=== PATIENT | male | born 1950 | race Caucasian/White ===

== ENCOUNTER 2019-11-12 07:06 | Inpatient (IN) | payer BC, OTHER ==
[2019-11-12 07:18] VITALS: BMI 27.3
[2019-11-12] MEDS ORDERED: FAMOTIDINE 20 MG/50 ML IVPB 20 MG in PREMIX 50 IVPB ONE (07:24)
[2019-11-12] MEDS ORDERED: MAG HYDROX/AL HYDROX/SIMETH -MYLANTA- ORAL SUSPENSION PO ONE (07:24)
--- NOTE | 2019-11-12 07:27 | PDOC ---
History of Present Illness - General Chief Complaint: Nausea/Vomiting Stated Complaint: NAUSEA/VOMITING/ABD PAIN Time Seen by Provider: 11/12/19 07:14 History Source: Patient Exam Limitations: No Limitations - History of Present Illness Travel History: No Initial Comments: 11/12/19 07:27 69y M hx of htn presents with epigastric pain since yesterday. Pt had a tooth extracted 3 days ago, and was prescribed vicodin and amoxicillin (last vicodin was wed, pain is now well controlled with no pain in his mouth). Pt endores a constant epigastric discomfort that feels like 'gas' and is associated with frequent burping. Pt also endorses vomiting aprpox 15 times that was brownish in color, and has not tried to eat or drink anything in the past day due to his discomfort. He denies any radaition of the pain, cp, fever/chills, diarrhea, back pain. There is no worsening of the pain with exertion and he is unsure if there is any changes of the pain with position. He has never had this type of discomfort before. Surgical hx: denies abd surgeries social: denies smoking, drinking, recreational drugs Past History - Medical History Allergies/Adverse Reactions: Allergies Allergy/AdvReac Type Severity Reaction Status Date / Time No Known Allergies Allergy Unverified 11/12/19 07:10 Home Medications: Ambulatory Orders Acetaminophen W/ Codeine #3 [Tylenol # 3 -] 1 tab PO PRN PRN 11/12/19 Amoxicillin 875 mg PO DAILY 11/12/19 Hydrochlorothiazide 12.5 mg PO DAILY 11/12/19 Telmisartan 20 mg PO DAILY 11/12/19 COPD: No HTN: Yes - Psycho-Social/Smoking History Smoking History: Never smoked Review of Systems - Review of Systems Able to Perform ROS?: Yes Comments:: 11/12/19 07:34 Constitutional - no reported Fever, Chills, HEENT: no reported vision changes, sore throat Respiratory: no reported cough, sob, hemoptysis Cardiac: no reported chest pain, palpitations, light headedness, leg swelling Abd/GI: +abd pain, nausea, vomiting, no reported blood per rectum, melena, diarrhea : no reported dysuria, frequency, discharge Musculskelatal - no reported back pain, joint swelling skin - no reported bruising, erythema, rash neurological: no reported headache, numbness, focal weakness, tingling, ataxia, hematologic: no reported easy bruising, easy bleeding *Physical Exam - Vital Signs Last Vital Signs Temp Pulse Resp BP Pulse Ox 97.7 F 109 H 18 150/81 99 11/12/19 07:13 11/12/19 07:13 11/12/19 07:13 11/12/19 07:13 11/12/19 07:13 - Physical Exam 11/12/19 07:43 GENERAL: The patient is awake, alert, and fully oriented, Nontoxic - in no acute distress. HEAD: Normocephalic, atraumatic. EYES: extraocular movements intact, sclera anicteric, conjunctiva clear. ENT: Normal voice, dry mucous membranes. NECK: Normal range of motion, supple LUNGS: Breath sounds equal, clear to auscultation bilaterally. No wheezes, no rhonchi, no rales. HEART: slightly tachycardic, normal S1 and S2 without murmur, rub or gallop. ABDOMEN: Soft, nontender, No guarding, no rebound. No CVA tenderness EXTREMITIES: Normal range of motion, no edema. NEUROLOGICAL: No facial assymetry, Normal speech, PSYCH: Normal mood, normal affect. SKIN: Warm, Dry, normal turgor, Heart Score/ECG Review - ECG Impressions Comment:: 11/12/19 07:43 Twelve-lead EKG was performed and reviewed by me. There is normal sinus rhythm with a 101 Left anterior Fascicular block The intervals are normal. There is normal R wave progression There are no ST or T wave abnormalities. Impression: Sinus tachycardia ED Treatment Course - LABORATORY CBC & Chemistry Diagram: 11/12/19 07:40 11/12/19 09:30 Medical Decision Making - Medical Decision Making 11/12/19 07:44 ddx for the patient's symptoms includes but is not limited to gastritis, pancreatitis, ACS, obstruction Will obtain blood work, will treat the patient symptomatically with Pepcid, Maalox, Zofran To be slightly tachycardic I suspect this may be secondary to dehydration, will give fluids Will reassess 11/12/19 10:26 Patient's blood work was reviewed noted for creatinine of 2.2 with elevated BUN. His WBCs and hematocrit are also elevated I suspect this is all a picture consistent with dehydration. Also has a anion gap, likely related to elevated BUN. Will obtain repeat blood work to evaluate for other As of elevated anion gap including beta hydroxy butyrate, lactic acid. will Continue fluid resuscitation We will admit the patient for further hydration Discharge - Discharge Information Problems reviewed: Yes Clinical Impression/Diagnosis: Epigastric pain, HUGO (acute kidney injury) Vomiting Qualifiers: Vomiting type: unspecified Vomiting Intractability: non-intractable Nausea presence: with nausea Qualified Code(s): R11.2 - Nausea with vomiting, unspecified Condition: Guarded - Admission Yes - Follow up/Referral - Patient Discharge Instructions - Post Discharge Activity
[2019-11-12] MEDS ORDERED: SODIUM CHLORIDE 1,000 ML IV ONE ×2 (07:32→09:15)
[2019-11-12] MEDS ORDERED: ONDANSETRON 4 MG/2 ML VIAL IVPB ONE (07:32)
[2019-11-12] MEDS ORDERED: FAMOTIDINE 20 MG/50 ML IVPB 20 MG/50 ML MG IVPB ONE (07:49)
[2019-11-12] MEDS ORDERED: MAG HYDROX/AL HYDROX/SIMETH 30 ML UNIT-DOSE CUP ONE (07:49)
[2019-11-12] MEDS ORDERED: ONDANSETRON 4 MG/2 ML VIAL ONE (07:50)
[2019-11-12 08:33] LABS: ALBUMIN 5.1 g/dl (3.4-5.0); BILIRUBIN,TOTAL 1.3 mg/dl (0.2-1); CALCIUM 10.3 mg/dl (8.5-10); CREATININE 2.2 mg/dl (0.55-1.3); POTASSIUM 3.5 mmol/L (3.5-5.1); TOT PROT 9.3 g/dl (6.4-8.2)
[2019-11-12 08:45] LABS: BASO % 0.3 % (0-2.0); HEMATOCRIT 49.1 % (35.4-49); HEMOGLOBIN 16.8 GM/dl (11.7-16.9); LYMPH % 5.2 % (8-40); MCHC 34.1 g/dl (32.0-35.9); MEAN CELL VOLUME 90.8 fl (80-96); MEAN PLT VOLUME 9.4 fl (7.5-11.1); NEUT % 89.5 % (42.8-82.8); PLATELET COUNT 371 K/MM3 (134-434); RDW 12.3 % (11.9-15.9); WHITE BLOOD COUNT 16.6 K/mm3 (4.0-10.8)
[2019-11-12 09:25] LABS: EPITHELIAL CELLS RARE /hpf
[2019-11-12 09:26] LABS: URINE HYALINE CAST 0-2 /lpf; URINE MUCUS 1+; WAXY CAST 0-2
[2019-11-12 10:04] LABS: CALCIUM 9.1 mg/dl (8.5-10); CREATININE 2.1 mg/dl (0.55-1.3); POTASSIUM 3.5 mmol/L (3.5-5.1)
[2019-11-12 11:21] LABS: VENOUS BASE EXCESS 5.9 mmol/L (-2-2); VENOUS O2 SATURATION 37.2 % (70-80); VENOUS PCO2 47.8 mmHg (38-52); VENOUS PH 7.435 (7.310-7.410)
[2019-11-12] MEDS ORDERED: PANTOPRAZOLE SODIUM 40 MG in SODIUM CHLORIDE 100 ML IVPB ONE (11:26)
[2019-11-12] MEDS ORDERED: PANTOPRAZOLE SODIUM 40 MG VIAL ONE (11:27)
[2019-11-12] MEDS ORDERED: ACETAMINOPHEN 325 MG TABLET (FP) PO PRN (12:50)
[2019-11-12] MEDS ORDERED: ONDANSETRON 4 MG/2 ML VIAL IVPUSH PRN (13:00)
[2019-11-12] MEDS ORDERED: POTASSIUM CHLORIDE 10 MEQ in SODIUM CHLORIDE 1,000 ML IVPB SCH (13:00)
--- NOTE | 2019-11-12 13:10 | HP ---
Admitting History and Physical - Primary Care Physician PCP: Panda Montoya ([phone]) - Admission Chief Complaint: Nausea/vomiting History of Present Illness: 69 year old M with h/o HTN and GERD presents to ED for evaluation of acute onset nausea, abd pain and vomiting in the setting of starting APAPw/ codeine and augmentin post tooth extraction two days ago (Thursday 11/09). Mr. Caceres reports taking three doses of Augmentin on an empty stomach, in addition to codeine for his tooth pain. On the afternoon of 11/10, around 3pm he experienced abdominal pain /10, gassiness and recurrent vomiting. Pt did not eat or attempt to fluid resuscitate over the next 12-18hrs, therefore, upon awakening on the morning of 11/11, he was lethargic and decided to proceed to local ED. He denies sick contacts or recent travel. No chest pain, dizziness, LOC, HEMPHILL, SOB or bloody emesis. In ED EKG: ST, Trop x 1 negative N/V treated with Pepcid, Maalox, Zofran Routine labs reveal WBC 16.6, lac 2.5 and Cr 2.2. Pt given 2L NS IVF and decision made to admit for continued fluid hydration and observation. 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, CVA, Dementia, Migraine, Multiple Sclerosis, Peripheral Neuropathy, Parkinson's, Seizure, Syncope, TIA, Vertigo, Other Cardiovascular: Yes: HTN Pulmonary: No: Asthma, Bronchitis, Cancer, COPD, O2 Dependent, Pneumonia, Previously Intubated, Pulmonary Embolus, Pulmonary Fibrosis, Sleep Apnea, Other Gastrointestinal: Yes: GERD Hepatobiliary: No: Cirrhosis, Cholelithiasis, Cholecystitis, Choledocholithiasis, Hepatitis A, Hepatitis B, Hepatitis C, Other Renal/: No: Renal Failure, Renal Inusuff, BPH, Cancer, Hematuria, Hemod ialysis, Neurogenic Bladder, Renal Calculi, UTI, Other Heme/Onc: No: Anemia, B12 Deficiency, Bleeding Disorder, Cancer, Current Chemotherapy, Current Radiation Therapy, Hemochromatosis, Hypercoaguable State, Myeloproliferative Synd, Sickle Cell Disease, Sickle Cell Trait, Th rombocytopenia, Other Psych: No: Addictions, Anxiety, Bipolar, Depression, Panic, Psychosis, Schizophrenia, Other Rheumatology: No: Fibromyalgia, Gout, Lupus, Rheumatoid Arthritis, Sarcoidosis, Vasculitis, Other ENT: No: Allergic Rhinitis, Sinusitis, Other Endocrine: No: Harpal's Disease, Archie's Disease, Diabetes Insipidus, Diabetes Mellitus, Hyperparathyroidism, Hyperthyroidism, Hypothyroidism, Osteopenia, SIADH, Other Dermatology: No: Basal Cell, Cellulitis, Eczema, Melanoma, Psoriasis, Squamous Cell, Other - Past Surgical History Additional Past Surgical History: bilateral cataract extraction 2019 right inguinal hernia repair 2018 - Advance Directives Advance Directives: Yes: Health Care Proxy (: Jessica Montoya [phone]) - Smoking History Smoking history: Never smoked Have you smoked in the past 12 months: No - Alcohol/Substance Use Hx Alcohol Use: No History of Substance Use: reports: None - Social History Usual Living Arrangement: Yes: With Spouse, With Child Do you think of yourself as: Straight/Heterosexual ADL: Independent History of Recent Travel: No Home Medications - Allergies Allergies/Adverse Reactions: Allergies Allergy/AdvReac Type Severity Reaction Status Date / Time No Known Allergies Allergy Unverified 11/12/19 07:10 - Home Medications Home Medications: Ambulatory Orders Acetaminophen W/ Codeine #3 [Tylenol # 3 -] 1 tab PO PRN PRN 11/12/19 Amoxicillin 875 mg PO DAILY 11/12/19 Hydrochlorothiazide 12.5 mg PO DAILY 11/12/19 Telmisartan 20 mg PO DAILY 11/12/19 Family Medical History Family History: As Documented Other Family History: Mother (70) Alzheimers dementia. Father (69) ? lung cancer, [place]. Sister (65) alzheimers Review of Systems - Review of Systems Constitutional: reports: Lethargy, Loss of Appetite, Weakness Eyes: reports: No Symptoms HENT: reports: No Symptoms Neck: reports: No Symptoms Cardiovascular: reports: No Symptoms Respiratory: reports: No Symptoms Gastrointestinal: reports: Abdominal Pain, Nausea, Vomiting Genitourinary: reports: No Symptoms Breasts: reports: No Symptoms Reported Musculoskeletal: reports: No Symptoms Integumentary: reports: No Symptoms Neurological: reports: No Symptoms Endocrine: reports: No Symptoms Hematology/Lymphatic: reports: No Symptoms Psychiatric: reports: No Symptoms Physical Examination Vital Signs: Vital Signs Temperature 98.2 F 11/12/19 12:31 Pulse Rate 89 11/12/19 12:31 Respiratory Rate 18 11/12/19 12:31 Blood Pressure 135/78 11/12/19 12:31 O2 Sat by Pulse Oximetry (%) 99 11/12/19 12:31 Constitutional: Yes: No Distress, Calm Eyes: Yes: Conjunctiva Clear HENT: Yes: Atraumatic, Normocephalic Neck: Yes: Supple, Trachea Midline Cardiovascular: Yes: Regular Rate and Rhythm Respiratory: Yes: Regular, CTA Bilaterally Gastrointestinal: Yes: Soft, Hypoactive Bowel Sounds ...Rectal Exam: Yes: Deferred Musculoskeletal: Yes: WNL Extremities: Yes: WNL Edema: No Peripheral Pulses: Left Radial: 2+, Right Radial: 2+ Integumentary: Yes: Tenting Neurological: Yes: Alert, Oriented ...Motor Strength: WNL Psychiatric: Yes: Alert, Oriented Labs: CBC, BMP 11/12/19 07:40 11/12/19 09:30 Imaging - Results Chest X-ray: Pending (CXR 11/12/2019) Cat Scan: Pending (Ct abd and pelvis 11/07/2019) Problem List - Problems (1) HTN (hypertension) Assessment/Plan: hold ARB and diuretic trend BP, if uptrending can rx norvasc Code(s): I10 - ESSENTIAL (PRIMARY) HYPERTENSION (2) Prophylactic measure Assessment/Plan: OOB to chair COVID screen pending - droplet/Airborne precautions KANDI stockings will hold off on lovenox due to recent dental work IC Code(s): Z29.9 - ENCOUNTER FOR PROPHYLACTIC MEASURES, UNSPECIFIED (3) GERD (gastroesophageal reflux disease) Assessment/Plan: PPI daily MAALOX PRN Code(s): K21.9 - GASTRO-ESOPHAGEAL REFLUX DISEASE WITHOUT ESOPHAGITIS (4) HUGO (acute kidney injury) Assessment/Plan: aggresive fluid resuscitation Trend serum Cr and electrolytes replete K as needed renal consulted f/u urine studies Code(s): N17.9 - ACUTE KIDNEY FAILURE, UNSPECIFIED (5) Vomiting Assessment/Plan: Clear liquid diet --> will progress as tolerated Zofran PRN N/V strict intake and output Code(s): R11.10 - VOMITING, UNSPECIFIED Qualifiers: Vomiting type: unspecified Vomiting Intractability: non-intractable Nausea presence: with nausea Qualified Code(s): R11.2 - Nausea with vomiting, unspecified (6) Abdominal pain Assessment/Plan: CT abd/pelvis ordered Code(s): R10.9 - UNSPECIFIED ABDOMINAL PAIN (7) Leukocytosis, unspecified Assessment/Plan: trend WBC and fever curve d/c augmentin start clindamycin 600mg Q8hrs blood culture x 2 trend lactate Code(s): D72.829 - ELEVATED WHITE BLOOD CELL COUNT, UNSPECIFIED (8) Loss of teeth due to extraction Assessment/Plan: APAP PRN dental pain Peridex oral solution BID Code(s): K08.199 - COMPLETE LOSS OF TEETH DUE TO OTH CAUSE, UNSPECIFIED CLASS Assessment/Plan Code status: Full Dispo: overnight obsevation, will repeat BMP and CBC in AM Visit type - Medication Review Med list reviewed for High Risk Meds patients 65 and older: Yes - Emergency Visit Emergency Visit: Yes ED Registration Date: 11/12/19 Care time: The patient presented to the Emergency Department on the above date and was hospitalized for further evaluation of their emergent condition. - New Patient This patient is new to me today: Yes Date on this admission: 11/12/19 - Critical Care Critical Care patient: No
--- OUTSIDE RECORDS SUMMARY | 2019-11-12 14:06 | XMS ---
:1950 Author [facility] Support Name Relationship Address Phone SE Unavailable Unavailable Unavailable BRITNEY MONSIVAIS [address] [place] [address] Re-disclosure Warning The records that you are about to access may contain information from federally- assisted alcohol or drug abuse programs. If such information is present, then the following federally mandated warning applies: This information has been disclosed to you from records protected by federal confidentiality rules (42 CFR part 2). The federal rules prohibit you from making any further disclosure of this information unless further disclosure is expressly permitted by the written consent of the person to whom it pertains or as otherwise permitted by 42 CFR part 2. A general authorization for the release of medical or other information is NOT sufficient for this purpose. The Federal rules restrict any use of the information to criminally investigate or prosecute any alcohol or drug abuse patient.The records that you are about to access may contain highly sensitive health information, the redisclosure of which is protected by Article 27-F of the [facility] Public Health law. If you continue you may haveaccess to information: Regarding HIV / AIDS; Provided by facilities licensed or operated by the [facility] Office of Mental Health; or Provided by the [facility] Office for People With Developmental Disabilities. If such information is present, then the following [facility] mandated warning applies: This information has been disclosed to you from confidential records which are protected by state law. State law prohibits you from making any further disclosure of this information without the specific written consent of the person to whom it pertains, or as otherwise permitted by law. Any unauthorized further disclosure in violation of state law may result in a fine or shelter sentence or both. A general authorization for the release of medical or other information is NOT sufficient authorization for further disclosure. Insurance Providers Payer name Policy type Policy ID Covered Covered republican's Policy P radha / Coverage republican ID relationship to Gil Inf ormation type gil BLUE CROSS [id number] S[employer]IOR PLAN 74 BLUE CROSS [id number] SENIOR PLAN 74 Social History Code Duration Value Status Description Data Source(s ) Smoking Unknown if ever completed Unknown if ever Andrew Colunga smoked [facility]
[2019-11-12] MEDS ORDERED: MAG HYDROX/AL HYDROX/SIMETH 30 ML UNIT-DOSE CUP PO PRN (14:15)
--- NOTE | 2019-11-12 14:42 | CONSULT ---
Consult Consult Specialty:: Nephrology Reason for Consultation:: HUGO - History of Present Illness Chief Complaint: vomiting History of Present Illness: Pt is a 69 year old gentleman with pmhx of htn and gerd who presented after having 12 episodes of vomiting. He had a tooth extraction on Friday. He was taking augmentin and apap with codein. He has not had anything to eat in two days. He was found to have elevated platform beater and I was called to evaluate him. He denies history of ckd. He denies nsaid use. He says he had a physical about one week ago and his labs were normal. He feels better today and says he dose have appetite. - Past Medical History Cardio/Vascular: Yes: HTN Gastrointestinal: Yes: GERD - Alcohol/Substance Use Hx Alcohol Use: No History of Substance Use: reports: None - Smoking History Smoking history: Never smoked Have you smoked in the past 12 months: No - Social History ADL: Independent History of Recent Travel: No Home Medications - Allergies Allergies/Adverse Reactions: Allergies Allergy/AdvReac Type Severity Reaction Status Date / Time No Known Allergies Allergy Unverified 11/12/19 07:10 - Home Medications Home Medications: Ambulatory Orders Acetaminophen W/ Codeine #3 [Tylenol # 3 -] 1 tab PO PRN PRN 11/12/19 Amoxicillin 875 mg PO DAILY 11/12/19 Hydrochlorothiazide 12.5 mg PO DAILY 11/12/19 Telmisartan 20 mg PO DAILY 11/12/19 Family Medical History Family History: Denies Other Family History: Mother (70) Alzheimers dementia. Father (69) ? lung cancer, [place]. Sister (65) alzheimers Review of Systems - Review of Systems Constitutional: reports: Malaise, Weakness Eyes: reports: No Symptoms HENT: reports: No Symptoms Neck: reports: No Symptoms Cardiovascular: reports: No Symptoms Respiratory: reports: No Symptoms Gastrointestinal: reports: No Symptoms Genitourinary: reports: No Symptoms Musculoskeletal: reports: No Symptoms Integumentary: reports: No Symptoms Neurological: reports: No Symptoms Endocrine: reports: No Symptoms Hematology/Lymphatic: reports: No Symptoms Psychiatric: reports: No Symptoms Physical Exam Vital Signs: Vital Signs Temperature 97.5 F L 11/12/19 13:23 Pulse Rate 84 11/12/19 13:23 Respiratory Rate 20 11/12/19 13:23 Blood Pressure 141/61 11/12/19 13:23 O2 Sat by Pulse Oximetry (%) 95 11/12/19 13:23 Constitutional: Yes: Calm Eyes: Yes: Conjunctiva Clear HENT: Yes: Atraumatic Cardiovascular: Yes: S1, S2 Respiratory: Yes: CTA Bilaterally Gastrointestinal: Yes: Soft Renal/: Yes: WNL Musculoskeletal: Yes: WNL Edema: No Neurological: Yes: Oriented Psychiatric: Yes: Oriented Labs: CBC, BMP 11/12/19 07:40 11/12/19 09:30 Laboratory Tests 11/12/19 11/12/19 11/12/19 07:40 07:40 07:40 WBC 16.6 H Hgb 16.8 Sodium Potassium Creatinine 2.2 H Lactic Acid Calcium 10.3 H Urine Protein 2+ H Urine Blood Negative 11/12/19 11/12/19 09:30 09:30 WBC Hgb Sodium 139 Potassium 3.5 Creatinine 2.1 H Lactic Acid 2.5 H* Calcium 9.1 Urine Protein Urine Blood Problem List - Problems (1) HUGO (acute kidney injury) Code(s): N17.9 - ACUTE KIDNEY FAILURE, UNSPECIFIED (2) Vomiting Code(s): R11.10 - VOMITING, UNSPECIFIED Qualifiers: Vomiting type: unspecified Vomiting Intractability: non-intractable Nausea presence: with nausea Qualified Code(s): R11.2 - Nausea with vomiting, unspecified Assessment/Plan Current Medications Generic Name Dose Route Start Last Admin Trade Name Freq PRN Reason Stop Dose Admin Acetaminophen 650 mg 11/12/19 12:50 Tylenol - PO Q4H PRN PAIN LEVEL 4 - 6 Al Hydroxide/Mg Hydroxide 30 ml 11/12/19 14:15 Mylanta Oral Suspension - PO Q6H PRN DYSPEPSIA Potassium Chloride 10 meq/ 1,005 mls @ 100 mls/hr 11/12/19 13:00 11/12/19 13:13 Sodium Chloride IVPB 100 mls/hr Q10H NAHEED Administration Losartan Potassium 25 mg 11/13/19 10:00 Cozaar - PO DAILY NAHEED Ondansetron HCl 4 mg 11/12/19 13:00 Zofran Injection IVPUSH Q6H PRN NAUSEA Pantoprazole Sodium 40 mg 11/12/19 22:00 Protonix - PO DAILY NAHEED Impression 1. HUGO 2. htn 3. s/p tooth extraction 4. gerd 5. vomiting Plan - agree with hydration, cont sodium chloride with potassium - check urine lytes and platform beater to calc fena - check renal ultrasound if renal function does not improve by tomorrow- - hugo likely from pre-renal disease in the setting of profuse vomiting. Pt however was also on abx, diuretics and an arb - hold losartan tomorrow until labs reviewed - check urine eos - discussed with medical team - abx - check cultures
[2019-11-12] MEDS ORDERED: CLINDAMYCIN 600MG PREMIX IVPB 600 MG/50 ML BAG IVPB SCH ×2 (14:45→23:30)
[2019-11-12 16:02] LABS: HEMOGLOBIN 15.4 GM/dl (11.7-16.9); MCH 31.7 pg (25.7-33.7); MEAN CELL VOLUME 90.8 fl (80-96); MEAN PLT VOLUME 8.7 fl (7.5-11.1); PLATELET COUNT 370 K/MM3 (134-434); RBC 4.85 M/mm3 (4.00-5.60); RDW 11.9 % (11.9-15.9)
[2019-11-12 16:39] LABS: ALBUMIN 4.3 g/dl (3.4-5.0); BILIRUBIN,TOTAL 1.1 mg/dl (0.2-1); CREATININE 1.9 mg/dl (0.55-1.3); POTASSIUM 3.2 mmol/L (3.5-5.1); TOT PROT 7.9 g/dl (6.4-8.2)
[2019-11-12 16:48] LABS: WHITE BLOOD COUNT 20.7 K/mm3 (4.0-10.8)
[2019-11-12] MEDS ORDERED: POTASSIUM CHLORIDE 20 MEQ PREMIX IVPB 100 ML IVPB ONE (17:10)
[2019-11-12] MEDS ORDERED: KCL 10 MEQ IVPB 10 MEQ/100 ML INFUS.BAG IVPB SCH ×2 (17:15→22:30)
[2019-11-12] MEDS ORDERED: PIPERACILLIN/TAZOBACTAM 3.375 GM VIAL IVPB ONE (17:35)
[2019-11-12] MEDS ORDERED: DEXTROSE 5%-WATER - 50 ML IVPB ONE (17:36)
[2019-11-12] MEDS: PIPERACILLIN/TAZOB 3.375 GM 3.375 GM in DEXTROSE 5%-WATER - 50 ML IVPB SCH (17:45)
[2019-11-12] MEDS: KCL 10 MEQ IVPB 10 MEQ/100 ML INFUS.BAG IVPB SCH ×3 (17:45→22:14)
[2019-11-12 18:59] LABS: CREATININE, URINE RANDOM 377.6 mg/dL
--- NOTE | 2019-11-12 20:16 | CONSULT ---
Consult Consult Specialty:: Surgery Reason for Consultation:: R/O SBO - History of Present Illness Chief Complaint: abdominal pain History of Present Illness: 69 year old M with h/o HTN and GERD presents to ED for evaluation of acute onset nausea, abd pain and vomiting in the setting of starting APAPw/ codeine and augmentin post tooth extraction two days ago (Thursday 11/09). Mr. Caceres reports taking three doses of Augmentin on an empty stomach, in addition to codeine for his tooth pain. On the afternoon of 11/10, around 3pm he experienced abdominal pain 10/27, gassiness and recurrent vomiting. 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, CVA, Dementia, Migraine, Multiple Sclerosis, Peripheral Neuropathy, Parkinson's, Seizure, Syncope, TIA, Vertigo, Other Cardio/Vascular: Yes: HTN Pulmonary: No: Asthma, Bronchitis, Cancer, COPD, O2 Dependent, Pneumonia, Previously Intubated, Pulmonary Embolus, Pulmonary Fibrosis, Sleep Apnea, Other Gastrointestinal: Yes: GERD Hepatobiliary: No: Cirrhosis, Cholelithiasis, Cholecystitis, Choledocholithiasis, Hepatitis A, Hepatitis B, Hepatitis C, Other Renal/: No: Renal Failure, Renal Inusuff, BPH, Cancer, Hematuria, Hemodialysis, Neurogenic Bladder, Renal Calculi, UTI, Other Psych: No: Addictions, Anxiety, Bipolar, Depression, Panic, Psychosis, Schizophrenia, Other Rheumatology: No: Fibromyalgia, Gout, Lupus, Rheumatoid Arthritis, Sarcoidosis, Vasculitis, Other ENT: No: Allergic Rhinitis, Sinusitis, Other Endocrine: No: [place]'s Disease, [place]'s Disease, Diabetes Insipidus, Diabetes Mellitus, Hyperparathyroidism, Hyperthyroidism, Hypothyroidism, Osteopenia, SIADH, Other Dermatology: No: Basal Cell, Cellulitis, Eczema, Melanoma, Psoriasis, Squamous Cell, Other - Alcohol/Substance Use Hx Alcohol Use: No History of Substance Use: reports: None - Smoking History Smoking history: Never smoked Have you smoked in the past 12 months: No - Social History ADL: Independent History of Recent Travel: No Home Medications - Allergies Allergies/Adverse Reactions: Allergies Allergy/AdvReac Type Severity Reaction Status Date / Time No Known Allergies Allergy Unverified 11/12/19 07:10 - Home Medications Home Medications: Ambulatory Orders Acetaminophen W/ Codeine #3 [Tylenol # 3 -] 1 tab PO PRN PRN 11/12/19 Amoxicillin 875 mg PO DAILY 11/12/19 Hydrochlorothiazide 12.5 mg PO DAILY 11/12/19 Telmisartan 20 mg PO DAILY 11/12/19 Family Medical History Family History: Denies Other Family History: Mother (70) Alzheimers dementia. Father (69) ? lung cancer, [place]. Sister (65) alzheimers Review of Systems - Review of Systems Eyes: reports: No Symptoms HENT: reports: No Symptoms Neck: reports: No Symptoms Cardiovascular: reports: No Symptoms Respiratory: reports: No Symptoms Gastrointestinal: reports: Abdominal Pain, Constipation Genitourinary: reports: No Symptoms Integumentary: reports: No Symptoms Endocrine: reports: No Symptoms Hematology/Lymphatic: reports: No Symptoms Physical Exam Vital Signs: Vital Signs Temperature 97.5 F L 11/12/19 13:23 Pulse Rate 84 11/12/19 13:23 Respiratory Rate 20 11/12/19 17:00 Blood Pressure 141/61 11/12/19 13:23 O2 Sat by Pulse Oximetry (%) 95 11/12/19 17:00 Constitutional: Yes: Well Nourished, No Distress Eyes: Yes: Conjunctiva Clear HENT: Yes: Normocephalic Neck: Yes: Supple Cardiovascular: Yes: Regular Rate and Rhythm Respiratory: Yes: CTA Bilaterally Gastrointestinal: Yes: Soft, Distention (MILD), Tenderness (minimal) ...Rectal Exam: Yes: Deferred Renal/: Yes: WNL Musculoskeletal: Yes: WNL Extremities: Yes: WNL Neurological: Yes: Alert, Oriented Labs: CBC, BMP 11/12/19 15:40 11/12/19 16:10 Imaging - Results Cat Scan: Report Reviewed, Image Reviewed Problem List - Problems (1) Small bowel obstruction Assessment/Plan: NGT decompression IVF, IV ABX GI, DVT prophylaxis FUA in am Code(s): K56.609 - UNSP INTESTNL OBST, UNSP TO PARTIAL VERSUS COMPLETE OBST
[2019-11-12] MEDS ORDERED: PANTOPRAZOLE 40 MG TABLET PO SCH (22:00)
[2019-11-12] MEDS ORDERED: SODIUM CHLORIDE 1,000 ML IV SCH (22:30)
[2019-11-12] MEDS: CHLORHEXIDINE GLUCONATE 0.12% 15ML CUP MM SCH (22:38)
[2019-11-12] MEDS: PANTOPRAZOLE SODIUM 40 MG VIAL IVPUSH SCH (23:05)
[2019-11-13] MEDS ORDERED: VANCOMYCIN 1 GM in D5W (PRE-DOCKED) 1,000 MG/250 ML IVPB SCH
[2019-11-13] MEDS ORDERED: PIPERACILLIN/TAZOBACTAM 3.375 GM VIAL IVPB ONE ×2 (01:51→11:33)
[2019-11-13] MEDS ORDERED: DEXTROSE 5%-WATER - 50 ML IVPB ONE ×3 (01:51→19:02)
[2019-11-13] MEDS: PIPERACILLIN/TAZOB 3.375 GM 3.375 GM in DEXTROSE 5%-WATER - 50 ML IVPB SCH ×2 (01:58→11:43)
[2019-11-13 08:15] LABS: BILIRUBIN,TOTAL 1.1 mg/dL (0.2-1); BLOOD UREA NITROGEN 43.2 mg/dL (7-18); CALCIUM 7.8 mg/dL (8.5-10.1); CREATININE 1.9 mg/dL (0.55-1.3); MAGNESIUM 1.8 mg/dL (1.8-2.4); PHOSPHOROUS 4.4 mg/dL (2.5-4.9); POTASSIUM 3.2 mmol/L (3.5-5.1); TOT PROT 6.3 g/dl (6.4-8.2)
[2019-11-13 08:22] LABS: BASO % 0.1 % (0-2.0); HEMATOCRIT 41.1 % (35.4-49); HEMOGLOBIN 13.8 GM/dL (11.7-16.9); LYMPH % 4.8 % (8-40); MCH 29.6 pg (25.7-33.7); MCHC 33.5 g/dl (32.0-35.9); MEAN CELL VOLUME 88.3 fl (80-96); MEAN PLT VOLUME 8.9 fl (7.5-11.1); MONO % 6.6 % (3.8-10.2); NEUT % 88.5 % (42.8-82.8); PLATELET COUNT 280 K/MM3 (134-434); RBC 4.66 M/mm3 (4.00-5.60); RDW 13.1 % (11.9-15.9); WHITE BLOOD COUNT 16.9 K/mm3 (4.0-10.0)
[2019-11-13] MEDS ORDERED: KCL 10 MEQ IVPB 10 MEQ/100 ML INFUS.BAG IVPB SCH (08:45)
[2019-11-13] MEDS ORDERED: LOSARTAN POTASSIUM 25 MG TABLET PO SCH (10:00)
[2019-11-13] MEDS ORDERED: PATIENT'S OWN MEDICATION (NON-FORMULARY) (Telmisartan [Telmisartan] 20 MG) PO SCH (10:00)
[2019-11-13] MEDS: CHLORHEXIDINE GLUCONATE 0.12% 15ML CUP MM SCH ×2 (11:40→23:55)
[2019-11-13] MEDS: POTASSIUM CHLORIDE 40 MEQ in SODIUM CHLORIDE 1,000 ML IVPB SCH (11:42)
[2019-11-13] MEDS: PANTOPRAZOLE SODIUM 40 MG VIAL IVPUSH SCH ×2 (11:43→22:17)
--- NOTE | 2019-11-13 12:44 | PN ---
Progress Note, Physician Chief Complaint: abdominal pain History of Present Illness: NGT drained 1700 last night. Denies abdominal pain but no flatus or BM - Current Medication List Current Medications: Active Medications Acetaminophen (Tylenol -) 650 mg PO Q4H PRN PRN Reason: PAIN LEVEL 4 - 6 Last Admin: 11/12/19 15:05 Dose: 650 mg Documented by: Chlorhexidine Gluconate (Peridex -) 15 ml MM BID NAHEED Last Admin: 11/13/19 11:40 Dose: Not Given Documented by: Piperacillin Sod/Tazobactam (Sod 3.375 gm/ Dextrose) 50 mls @ 100 mls/hr IVPB Q8H-IV NAHEED; Protocol Potassium Chloride 40 meq/ (Sodium Chloride) 1,020 mls @ 125 mls/hr IVPB Q8H NAHEED Stop: 11/14/19 00:34 Last Admin: 11/13/19 11:42 Dose: 125 mls/hr Documented by: Ondansetron HCl (Zofran Injection) 4 mg IVPUSH Q6H PRN PRN Reason: NAUSEA Pantoprazole Sodium (Protonix Iv) 40 mg IVPUSH BID NAHEED Last Admin: 11/13/19 11:43 Dose: 40 mg Documented by: Vancomycin HCl (Vancomycin (Pre-Docked)) 1,000 mg IVPB DAILY NAHEED; Protocol - Objective Vital Signs: Vital Signs Temperature 98.0 F 11/13/19 05:00 Pulse Rate 94 H 11/13/19 05:00 Respiratory Rate 18 11/13/19 00:00 Blood Pressure 133/76 11/13/19 05:00 O2 Sat by Pulse Oximetry (%) 94 L 11/13/19 05:00 Constitutional: Yes: No Distress Neck: Yes: Supple Cardiovascular: Yes: Regular Rate and Rhythm Respiratory: Yes: CTA Bilaterally Gastrointestinal: Yes: Soft, Abdomen, Obese, Distention (minimal to none), Tenderness (none) ...Rectal Exam: Yes: Deferred Labs: CBC, BMP 11/13/19 07:05 11/13/19 07:05 Problem List - Problems (1) Small bowel obstruction Assessment/Plan: r/o adhesive band vs. small bowel tumor, vs. reflex ileus Patient seems to be clinically better with slowing down of NGT drainage repeat CT A/P with oral contrast trial of fleet enema continue IVF, IV ABX, electrolyte replacements Code(s): K56.609 - UNSP INTESTNL OBST, UNSP TO PARTIAL VERSUS COMPLETE OBST
[2019-11-13] MEDS ORDERED: SODIUM PHOSPHATE/NA BIPHOS 133 ML ENEMA RC ONE (12:46)
--- NOTE | 2019-11-13 14:34 | PN ---
Progress Note (short form) - Note Progress Note: RENAL pt is awake and alert has an ngt in place appears comfortable Last Vital Signs Temp Pulse Resp BP Pulse Ox 98.0 F 94 H 18 133/76 94 L 11/13/19 05:00 11/13/19 05:00 11/13/19 09:00 11/13/19 05:00 11/13/19 09:00 lungs clear cvs s1s2 rr abd soft ext no edema neuro a+ox3 CBC, BMP 11/13/19 07:05 11/13/19 07:05 Current Medications Generic Name Dose Route Start Last Admin Trade Name Freq PRN Reason Stop Dose Admin Acetaminophen 650 mg 11/12/19 12:50 11/12/19 15:05 Tylenol - PO 650 mg Q4H PRN Administration PAIN LEVEL 4 - 6 Chlorhexidine Gluconate 15 ml 11/12/19 22:00 11/13/19 11:40 Peridex - MM Not Given BID NAHEED Piperacillin Sod/Tazobactam 50 mls @ 100 mls/hr 11/12/19 18:00 Sod 3.375 gm/ Dextrose IVPB Q8H-IV NAHEED Protocol Potassium Chloride 40 meq/ 1,020 mls @ 125 mls/hr 11/13/19 08:35 11/13/19 11:42 Sodium Chloride IVPB 11/14/19 00:34 125 mls/hr Q8H NAHEED Administration Ondansetron HCl 4 mg 11/12/19 13:00 Zofran Injection IVPUSH Q6H PRN NAUSEA Pantoprazole Sodium 40 mg 11/12/19 22:45 11/13/19 11:43 Protonix Iv IVPUSH 40 mg BID NAHEED Administration Vancomycin HCl 1,000 mg 11/13/19 00:00 Vancomycin (Pre-Docked) IVPB DAILY NAHEED Protocol Impression 1. HUGO 2. htn 3. s/p tooth extraction 4. gerd 5. vomiting- causing low urine chloride and high urine ph 6. had a chloride responsive alkalosis 7 bowel obstruction Plan ns with k replace k which is being lost in the urine surgical follow up MV
--- NOTE | 2019-11-13 16:14 | EKG ---
Test Reason : Blood Pressure : / mmHG Vent. Rate : 101 BPM Atrial Rate : 101 BPM P-R Int : 126 ms QRS Dur : 098 ms QT Int : 362 ms P-R-T Axes : 066 -78 067 degrees QTc Int : 469 ms SINUS TACHYCARDIA LEFT ANTERIOR FASCICULAR BLOCK ABNORMAL ECG NO PREVIOUS ECGS AVAILABLE Confirmed by MD Geronimo, Oscar ([id number]) on 11/13/2019 4:13:52 PM Referred By: SANTOS MORALES Confirmed By:Oscar Melton MD
--- NOTE | 2019-11-13 17:03 | PN ---
Progress Note (short form) - Note Progress Note: Patient is c/o having an NG-tube , no further abdominal pain. NGT drained 1700 last night, no flatus or BM yet. Vital Signs Temperature 98.0 F 11/13/19 05:00 Pulse Rate 94 H 11/13/19 05:00 Respiratory Rate 18 11/13/19 09:00 Blood Pressure 133/76 11/13/19 05:00 O2 Sat by Pulse Oximetry (%) 94 L 11/13/19 09:00 GENERAL: The patient is awake, alert, and fully oriented, in no acute distress. HEAD: Normal with no signs of trauma. EYES: PERRL, extraocular movements intact, sclera anicteric, conjunctiva clear. ENT: Ears normal, oropharynx clear without exudates, moist mucous membranes. + NG-tube NECK: Trachea midline, full range of motion, supple. LUNGS: Breath sounds equal, clear to auscultation bilaterally, no wheezes, no crackles, no accessory muscle use. HEART: Regular rate and rhythm, S1, S2 without murmur, rub or gallop. ABDOMEN: Soft, mild distention, normoactive bowel sounds, no guarding, no rebound, no hepatosplenomegaly, no masses. EXTREMITIES: 2+ pulses, warm, well-perfused, no edema. NEUROLOGICAL: Cranial nerves II through XII grossly intact. gait not observed. PSYCH: Normal mood, normal affect. SKIN: Warm, dry, normal turgor, no rashes or lesions noted CBCD WBC 16.9 K/mm3 (4.0-10.0) H 11/13/19 07:05 RBC 4.66 M/mm3 (4.00-5.60) 11/13/19 07:05 Hgb 13.8 GM/dL (11.7-16.9) 11/13/19 07:05 Hct 41.1 % (35.4-49) 11/13/19 07:05 MCV 88.3 fl (80-96) 11/13/19 07:05 MCHC 33.5 g/dl (32.0-35.9) 11/13/19 07:05 RDW 13.1 % (11.9-15.9) 11/13/19 07:05 Plt Count 280 K/MM3 (134-434) 11/13/19 07:05 MPV 8.9 fl (7.5-11.1) 11/13/19 07:05 CMP Sodium 137 mmol/L (136-145) 11/13/19 07:05 Potassium 3.2 mmol/L (3.5-5.1) L 11/13/19 07:05 Chloride 98 mmol/L (98-107) 11/13/19 07:05 Carbon Dioxide 30 mmol/L (21-32) 11/13/19 07:05 Anion Gap 8 MMOL/L (8-16) 11/13/19 07:05 BUN 43.2 mg/dL (7-18) H 11/13/19 07:05 Creatinine 1.9 mg/dL (0.55-1.3) H 11/13/19 07:05 Random Glucose 115 mg/dL (74-106) H 11/13/19 07:05 Calcium 7.8 mg/dL (8.5-10.1) L 11/13/19 07:05 Total Bilirubin 1.1 mg/dL (0.2-1) H 11/13/19 07:05 AST 16 U/L (15-37) 11/13/19 07:05 ALT 17 U/L (13-61) 11/13/19 07:05 Alkaline Phosphatase 59 U/L (45-117) 11/13/19 07:05 Total Protein 6.3 g/dl (6.4-8.2) L 11/13/19 07:05 Albumin 3.0 g/dl (3.4-5.0) L 11/13/19 07:05 CARDIAC ENZYMES Creatine Kinase 75 U/L (26-308) 11/12/19 07:40 Troponin I < 0.03 ng/ml (0.00-0.05) 11/12/19 07:40 Current Medications Generic Name Dose Route Start Last Admin Trade Name Freq PRN Reason Stop Dose Admin Acetaminophen 650 mg 11/12/19 12:50 11/12/19 15:05 Tylenol - PO 650 mg Q4H PRN Administration PAIN LEVEL 4 - 6 Chlorhexidine Gluconate 15 ml 11/12/19 22:00 11/13/19 11:40 Peridex - MM Not Given BID NAHEED Piperacillin Sod/Tazobactam 50 mls @ 100 mls/hr 11/12/19 18:00 Sod 3.375 gm/ Dextrose IVPB Q8H-IV NAHEED Protocol Potassium Chloride 40 meq/ 1,020 mls @ 125 mls/hr 11/13/19 08:35 11/13/19 11:42 Sodium Chloride IVPB 11/14/19 00:34 125 mls/hr Q8H NAHEED Administration Ondansetron HCl 4 mg 11/12/19 13:00 Zofran Injection IVPUSH Q6H PRN NAUSEA Pantoprazole Sodium 40 mg 11/12/19 22:45 11/13/19 11:43 Protonix Iv IVPUSH 40 mg BID NAHEED Administration Vancomycin HCl 1,000 mg 11/13/19 00:00 Vancomycin (Pre-Docked) IVPB DAILY NAHEED Protocol Home Medications Medication Instructions Recorded Acetaminophen W/ Codeine #3 1 tab PO PRN PRN 11/12/19 [Tylenol # 3 -] Amoxicillin 875 mg PO DAILY 11/12/19 Hydrochlorothiazide 12.5 mg PO DAILY 11/12/19 Telmisartan 20 mg PO DAILY 11/12/19 Assessment and plan: This is a 69yom with PMHx of HTN and GERD who presents to ED for evaluation of acute onset nausea, abd pain and vomiting in the setting of starting APAP w/ codeine and augmentin s/p tooth extraction two days ago (Thursday 11/09). Taken 3 doses of Patient Augmentin on an empty stomach, in addition to codeine for his tooth pain. Patient was admitted for Acute SBO. #Acute SBO: patient had no hx of any previous surgery, r/o reflex ileus vs small bowel tumor , ordered Ct of abdomen and pelvis with oral contrast by dr Proctor, will follow. continue NG-tube to low intermittent suction #ARF: will continue IVF, nephro on the case , hold ARB #Hx of HTN: stable ,will follow #Hx of GerD: protonix #Hx of tooth extractions s/p Augmentin and Codeine with APAP , on zosyn (renally doses) & vancomycin now, ID on the case. #Acute hypokalemia: on IVF with K 40meq, continue. DVT: scds, heparin sq Visit type - Emergency Visit Emergency Visit: Yes ED Registration Date: 11/12/19 Care time: The patient presented to the Emergency Department on the above date and was hospitalized for further evaluation of their emergent condition. - New Patient This patient is new to me today: Yes Date on this admission: 11/13/19 - Critical Care Critical Care patient: No - Discharge Referral Referred to [facility] Med P.C[facility] No - Medication Review Med list reviewed for High Risk Meds patients 65 and older: Yes
[2019-11-13] MEDS ORDERED: PIPERACILLIN/TAZOB 2.25 GM 2.25 GM in DEXTROSE 5%-WATER - 50 ML IVPB SCH (18:15)
[2019-11-13] MEDS ORDERED: PIPERACILLIN/TAZOBACTAM 2.25 GM VIAL IVPB ONE (19:02)
[2019-11-13] MEDS: HEPARIN NA (PORCINE) 5,000 UNITS/ML 1ML VIAL SQ SCH (22:17)
--- NOTE | 2019-11-13 23:04 | PN ---
Progress Note (short form) - Note Progress Note: ID CONSULT DICTATED DISCUSSED WITH SURGERY
[2019-11-14] MEDS ORDERED: VANCOMYCIN 1 GM in D5W (PRE-DOCKED) 1,000 MG/250 ML IVPB SCH (00:01)
[2019-11-14] MEDS ORDERED: PIPERACILLIN/TAZOBACTAM 2.25 GM VIAL IVPB ONE ×3 (00:37→18:46)
[2019-11-14] MEDS ORDERED: DEXTROSE 5%-WATER - 50 ML IVPB ONE ×3 (00:38→18:46)
[2019-11-14] MEDS: PIPERACILLIN/TAZOB 2.25 GM 2.25 GM in DEXTROSE 5%-WATER - 50 ML IVPB SCH ×3 (01:18→19:01)
[2019-11-14] MEDS: POTASSIUM CHLORIDE 40 MEQ in SODIUM CHLORIDE 1,000 ML IVPB SCH (01:18)
[2019-11-14] MEDS: HEPARIN NA (PORCINE) 5,000 UNITS/ML 1ML VIAL SQ SCH ×3 (05:22→21:43)
[2019-11-14] MEDS: PIPERACILLIN/TAZOB 3.375 GM 3.375 GM in DEXTROSE 5%-WATER - 50 ML IVPB SCH ×2 (07:34→07:44)
[2019-11-14] MEDS: VANCOMYCIN 1 GM in D5W (PRE-DOCKED) 1,000 MG/250 ML IVPB SCH (07:34)
[2019-11-14] MEDS ORDERED: PT OWN MED DRAWER 7, Y5N ONE (09:02)
[2019-11-14] MEDS: PANTOPRAZOLE SODIUM 40 MG VIAL IVPUSH SCH ×2 (09:05→21:43)
[2019-11-14] MEDS: CHLORHEXIDINE GLUCONATE 0.12% 15ML CUP MM SCH ×2 (09:06→21:43)
--- NOTE | 2019-11-14 10:01 | PN ---
Teaching Attending Note Name of Resident: Mohan Lange ATTENDING PHYSICIAN STATEMENT I saw and evaluated the patient. I reviewed the resident's note and discussed the case with the resident. I agree with the resident's findings and plan as documented. SUBJECTIVE: Patient is feeling better with no acute distress. Had flatus and Bms. No fever or chills, wants to go home. OBJECTIVE: Vital Signs Temperature 99.4 F 11/14/19 05:20 Pulse Rate 90 11/14/19 05:20 Respiratory Rate 20 11/14/19 05:20 Blood Pressure 140/71 11/14/19 05:20 O2 Sat by Pulse Oximetry (%) 94 L 11/14/19 05:20 PE: per resident's note soft abdomen CBCD WBC 16.9 K/mm3 (4.0-10.0) H 11/13/19 07:05 RBC 4.66 M/mm3 (4.00-5.60) 11/13/19 07:05 Hgb 13.8 GM/dL (11.7-16.9) 11/13/19 07:05 Hct 41.1 % (35.4-49) 11/13/19 07:05 MCV 88.3 fl (80-96) 11/13/19 07:05 MCHC 33.5 g/dl (32.0-35.9) 11/13/19 07:05 RDW 13.1 % (11.9-15.9) 11/13/19 07:05 Plt Count 280 K/MM3 (134-434) 11/13/19 07:05 MPV 8.9 fl (7.5-11.1) 11/13/19 07:05 CMP Sodium 137 mmol/L (136-145) 11/13/19 07:05 Potassium 3.2 mmol/L (3.5-5.1) L 11/13/19 07:05 Chloride 98 mmol/L (98-107) 11/13/19 07:05 Carbon Dioxide 30 mmol/L (21-32) 11/13/19 07:05 Anion Gap 8 MMOL/L (8-16) 11/13/19 07:05 BUN 43.2 mg/dL (7-18) H 11/13/19 07:05 Creatinine 1.9 mg/dL (0.55-1.3) H 11/13/19 07:05 Random Glucose 115 mg/dL (74-106) H 11/13/19 07:05 Calcium 7.8 mg/dL (8.5-10.1) L 11/13/19 07:05 Total Bilirubin 1.1 mg/dL (0.2-1) H 11/13/19 07:05 AST 16 U/L (15-37) 11/13/19 07:05 ALT 17 U/L (13-61) 11/13/19 07:05 Alkaline Phosphatase 59 U/L (45-117) 11/13/19 07:05 Total Protein 6.3 g/dl (6.4-8.2) L 11/13/19 07:05 Albumin 3.0 g/dl (3.4-5.0) L 11/13/19 07:05 CARDIAC ENZYMES Creatine Kinase 75 U/L (26-308) 11/12/19 07:40 Troponin I < 0.03 ng/ml (0.00-0.05) 11/12/19 07:40 Current Medications Generic Name Dose Route Start Last Admin Trade Name Freq PRN Reason Stop Dose Admin Chlorhexidine Gluconate 15 ml 11/12/19 22:00 11/14/19 09:06 Peridex - MM 15 ml BID NAHEED Administration Heparin Sodium (Porcine) 5,000 unit 11/13/19 22:00 11/14/19 05:22 Heparin - SQ 5,000 unit TID NAHEED Administration Piperacillin Sod/Tazobactam 50 mls @ 100 mls/hr 11/14/19 02:00 11/14/19 09:05 Sod 2.25 gm/ Dextrose IVPB 100 mls/hr Q8H-IV NAHEED Administration Protocol Ondansetron HCl 4 mg 11/12/19 13:00 Zofran Injection IVPUSH Q6H PRN NAUSEA Pantoprazole Sodium 40 mg 11/12/19 22:45 11/14/19 09:05 Protonix Iv IVPUSH 40 mg BID NAHEED Administration Home Medications Medication Instructions Recorded Acetaminophen W/ Codeine #3 1 tab PO PRN PRN 11/12/19 [Tylenol # 3 -] Amoxicillin 875 mg PO DAILY 11/12/19 Hydrochlorothiazide 12.5 mg PO DAILY 11/12/19 Telmisartan 20 mg PO DAILY 11/12/19 Microbiology 11/12/19 15:40 Blood - Peripheral Venous Blood Culture - Preliminary NO GROWTH OBTAINED AFTER 24 HOURS, INCUBATION TO CONTINUE FOR 4 DAYS. 11/12/19 15:40 Blood - Peripheral Venous Blood Culture - Preliminary NO GROWTH OBTAINED AFTER 24 HOURS, INCUBATION TO CONTINUE FOR 4 DAYS. Assessment and plan: This is a 69yom with PMHx of HTN and GERD who presents to ED for evaluation of acute onset nausea, abd pain and vomiting in the setting of starting APAP w/ codeine and augmentin s/p tooth extraction two days ago (Thursday 11/09). Taken 3 doses of Patient Augmentin on an empty stomach, in addition to codeine for his tooth pain. Patient was admitted for Acute SBO. #Acute SBO: patient had no hx of any previous surgery, resolved, most likely due to ileus s/p NG tube removal. As per Dr Proctor , if he tolerates diet, patient can go home. Discussed with ID Dr Waterman, patient can continue taking his home antibiotics and to call his office for repeat CBC #ARF: will continue IVF, nephro on the case , hold ARB #Hx of HTN: stable ,will follow #Hx of GerD: protonix #Hx of tooth extractions s/p Augmentin 875mg po bid and Codeine with APAP , on zosyn (renally doses) & vancomycin now, ID on the case. #Acute hypokalemia: on IVF with K 40meq, continue. resolved. DVT: scds, heparin sq
--- NOTE | 2019-11-14 10:52 | PN ---
Progress Note, Physician Chief Complaint: abdominal pain History of Present Illness: Passed falatus and stool several times CT A/P - OFFICIAL REPORT PENDING, contrast seen throughout colon - Current Medication List Current Medications: Active Medications Chlorhexidine Gluconate (Peridex -) 15 ml MM BID [facility] Last Admin: 11/14/19 09:06 Dose: 15 ml Documented by: Heparin Sodium (Porcine) (Heparin -) 5,000 unit SQ TID [facility] Last Admin: 11/14/19 05:22 Dose: 5,000 unit Documented by: Piperacillin Sod/Tazobactam (Sod 2.25 gm/ Dextrose) 50 mls @ 100 mls/hr IVPB Q8H-IV NAHEED; Protocol Last Admin: 11/14/19 09:05 Dose: 100 mls/hr Documented by: Ondansetron HCl (Zofran Injection) 4 mg IVPUSH Q6H PRN PRN Reason: NAUSEA Pantoprazole Sodium (Protonix Iv) 40 mg IVPUSH BID [facility] Last Admin: 11/14/19 09:05 Dose: 40 mg Documented by: - Objective Vital Signs: Vital Signs Temperature 99.4 F 11/14/19 05:20 Pulse Rate 90 11/14/19 05:20 Respiratory Rate 11/14/19 05:20 Blood Pressure 140/71 11/14/19 05:20 O2 Sat by Pulse Oximetry (%) 94 L 11/14/19 05:20 Constitutional: Yes: Calm Gastrointestinal: Yes: Soft, Distention (none), Tenderness (none) Labs: CBC, BMP 11/13/19 07:05 11/13/19 07:05 Problem List - Problems (1) Small bowel obstruction Assessment/Plan: resolved, likely ileus resume diet with clear liquidsand advance BRAD continue medical management No surgical intervention necessary at this point Code(s): K56.609 - UNSP INTESTNL OBST, UNSP TO PARTIAL VERSUS COMPLETE OBST
[2019-11-14 11:41] LABS: BASO % 0.2 % (0-2.0); EOS % 0.2 % (0-4.5); HEMATOCRIT 39.1 % (35.4-49); HEMOGLOBIN 12.8 GM/dL (11.7-16.9); LYMPH % 5.4 % (8-40); MCH 29.7 pg (25.7-33.7); MCHC 32.7 g/dl (32.0-35.9); MEAN CELL VOLUME 90.6 fl (80-96); MEAN PLT VOLUME 8.6 fl (7.5-11.1); MONO % 7.4 % (3.8-10.2); NEUT % 86.8 % (42.8-82.8); PLATELET COUNT 254 K/MM3 (134-434); RBC 4.32 M/mm3 (4.00-5.60); RDW 13.1 % (11.9-15.9); WHITE BLOOD COUNT 16.1 K/mm3 (4.0-10.0)
--- NOTE | 2019-11-14 11:44 | PN ---
Progress Note (short form) - Note Progress Note: RENAL pt is awake and alert feels better had a BM Last Vital Signs Temp Pulse Resp BP Pulse Ox 99.4 F 90 20 140/71 94 L 11/14/19 05:20 11/14/19 05:20 11/14/19 05:20 11/14/19 05:20 11/14/19 05:20 lungs clear cvs s1s2 rr abd soft ext no edema neuro a+ox3 CBC, BMP 11/14/19 11:15 Current Medications Generic Name Dose Route Start Last Admin Trade Name Freq PRN Reason Stop Dose Admin Chlorhexidine Gluconate 15 ml 11/12/19 22:00 11/14/19 09:06 Peridex - MM 15 ml BID NAHEED Administration Heparin Sodium (Porcine) 5,000 unit 11/13/19 22:00 11/14/19 05:22 Heparin - SQ 5,000 unit TID NAHEED Administration Piperacillin Sod/Tazobactam 50 mls @ 100 mls/hr 11/14/19 02:00 11/14/19 09:05 Sod 2.25 gm/ Dextrose IVPB 100 mls/hr Q8H-IV NAHEED Administration Protocol Ondansetron HCl 4 mg 11/12/19 13:00 Zofran Injection IVPUSH Q6H PRN NAUSEA Pantoprazole Sodium 40 mg 11/12/19 22:45 11/14/19 09:05 Protonix Iv IVPUSH 40 mg BID NAHEED Administration Impression 1. HUGO 2. htn 3. s/p tooth extraction 4. gerd 5. vomiting- causing low urine chloride and high urine ph 6. had a chloride responsive alkalosis 7 bowel obstruction Plan check labs today pt states he was cleared for discharge by surgery if labs acceptable can discharge with follow up MV
[2019-11-14 12:09] LABS: BLOOD UREA NITROGEN 32.5 mg/dL (7-18); CALCIUM 7.8 mg/dL (8.5-10.1); CREATININE 1.1 mg/dL (0.55-1.3); POTASSIUM 3.8 mmol/L (3.5-5.1)
--- NOTE | 2019-11-14 12:37 | PN ---
Progress Note, Physician History of Present Illness: FEELING BETTER AMBULATORY NGT REMOVED NO ABDOMINAL PAIN NO V/V + BMS AFEBRILE WBC 16 - Current Medication List Current Medications: Active Medications Chlorhexidine Gluconate (Peridex -) 15 ml MM BID [facility] Last Admin: 11/14/19 09:06 Dose: 15 ml Documented by: Heparin Sodium (Porcine) (Heparin -) 5,000 unit SQ TID [facility] Last Admin: 11/14/19 05:22 Dose: 5,000 unit Documented by: Piperacillin Sod/Tazobactam (Sod 2.25 gm/ Dextrose) 50 mls @ 100 mls/hr IVPB Q8H-IV NAHEED; Protocol Last Admin: 11/14/19 09:05 Dose: 100 mls/hr Documented by: Ondansetron HCl (Zofran Injection) 4 mg IVPUSH Q6H PRN PRN Reason: NAUSEA Pantoprazole Sodium (Protonix Iv) 40 mg IVPUSH BID [facility] Last Admin: 11/14/19 09:05 Dose: 40 mg Documented by: - Objective Vital Signs: Vital Signs Temperature 99.4 F 11/14/19 05:20 Pulse Rate 90 11/14/19 05:20 Respiratory Rate 20 11/14/19 05:20 Blood Pressure 140/71 11/14/19 05:20 O2 Sat by Pulse Oximetry (%) 94 L 11/14/19 05:20 Constitutional: Yes: No Distress Eyes: Yes: Conjunctiva Clear Cardiovascular: Yes: Regular Rate and Rhythm, S1, S2 Respiratory: Yes: CTA Bilaterally Gastrointestinal: Yes: Normal Bowel Sounds, Soft. No: Tenderness Labs: CBC, BMP 11/14/19 11:15 11/14/19 11:15 Assessment/Plan BOWEL OBSTRUCTION RESOLVED LEUKOCYTOSIS IMPROVING BC NO GROWTH CONTINUE EMPIRIC ANTIBIOTICS
--- NOTE | 2019-11-14 15:03 | PN ---
Physical Exam: SUBJECTIVE: Patient seen and examined, speaking in hoarse voice likely 2/2 NG tube placement and removal, in no acute distress, able to tolerate CLD. Denies HEMPHILL, CP, SoB, abdominal fullness, N/V/D or changes in urinary or bowel. OBJECTIVE: Vital Signs Period Temp Pulse Resp BP Sys/Zarco Pulse Ox Last 24 Hr 98.6 F-99.4 F 90-100 20-20 133-140/71-72 94-94 GENERAL: The patient is awake, alert, and fully oriented, in no acute distress. HEAD: Normal with no signs of trauma. EYES: PERRL, extraocular movements intact, sclera anicteric, conjunctiva clear. No ptosis. ENT: Oropharynx clear without exudates, moist mucous membranes. NECK: Trachea midline, full range of motion, supple. LUNGS: Breath sounds equal, clear to auscultation bilaterally, no wheezes, no crackles, no accessory muscle use. HEART: Regular rate and rhythm, S1, S2 without murmur, rub or gallop. ABDOMEN: Soft, nontender, nondistended, normoactive bowel sounds EXTREMITIES: 2+ pulses, warm, well-perfused, no edema. NEUROLOGICAL: Normal speech, gait not observed. PSYCH: Normal mood, normal affect. SKIN: Warm, dry, normal turgor, no rashes or lesions noted Laboratory Results - last 24 hr CBC, BMP 11/14/19 11:15 11/14/19 11:15 Active Medications Generic Name Dose Route Start Last Admin Trade Name Freq PRN Reason Stop Dose Admin Chlorhexidine Gluconate 15 ml 11/12/19 22:00 11/14/19 09:06 Peridex - MM 15 ml BID NAHEED Administration Heparin Sodium (Porcine) 5,000 unit 11/13/19 22:00 11/14/19 13:38 Heparin - SQ 5,000 unit TID NAHEED Administration Piperacillin Sod/Tazobactam 50 mls @ 100 mls/hr 11/14/19 02:00 11/14/19 19:01 Sod 2.25 gm/ Dextrose IVPB 100 mls/hr Q8H-IV NAHEED Administration Protocol Ondansetron HCl 4 mg 11/12/19 13:00 Zofran Injection IVPUSH Q6H PRN NAUSEA Pantoprazole Sodium 40 mg 11/12/19 22:45 11/14/19 09:05 Protonix Iv IVPUSH 40 mg BID NAHEED Administration ASSESSMENT/PLAN: 69 yo m w/ PMHx of HTN and GERD who presents to ED for evaluation of acute onset nausea, abdominal pain and vomiting, following starting APAP w/ codeine and augmentin s/p tooth extraction on Thursday 11/09. Ptn took 3 doses of augmentin on an empy stomach in addition to codeine for his tooth pain. Admitted for Acute SBO Acute SBO 2/2 Medication -CT: Significant interval improvement of gastric and duodenal dilatation, which now demonstrate normal caliber status post enteric tube placement with enteric contrast visualized up to the sigmoid colon. -Surgery Consulted: No surgical intervention needed, can resume CLD, advance as tolerated, likely illeus -ID Consulted: WBC trending down, continue Zosyn renally dosed -NG Tube removed, had BM s/p enema, no N/V, no abdominal fullness. -Zofran PRN -FU if tolerate soft diet Radiographic Evidence of b/l Pneumonia w.o Clinical Findings -WBC: 16 --> 20 -->16 -CT: Interval development of bilateral lower lobe airspace opacities suspicious for pneumonia. -CXR (11/13): New congestive changes and questionable superimposed basilar infiltrates and compared to 11/12/2019 at 1553 hours. There is some pleural fluid. -FU CXR (11.14): -c/w Zosyn 2.25 Acute Renal Failure likely 2/2 vomitting, Pre-Renal -BUN:Cr >20:1 -Cr. 2.2 --> 1.1 -Nephro Consulted: Cleared for DC w/ follow-up if labs are acceptable Hx of HTN -BP WNL -Continue to monitor Hx of GERD -Protonix IV 40mg BID Hx of Tooth Extraction -s/p Augmentin & APAP Codeine -Will need to continue Augmentin on DC 5xDays [id number] RESOLVED: Acute Hypokalemia -K+: 3.2 --> 3.8 -Trend and replete if <3.5 PPx: -DVT: Heparin 5k TID -GI: Protonix 40mg IVPUSH BID Dispo: Continue to monitor on medical floors. 1. HUGO 2. htn 3. s/p tooth extraction 4. gerd 5. vomiting- causing low urine chloride and high urine ph 6. had a chloride responsive alkalosis 7 bowel obstruction Plan check labs today pt states he was cleared for discharge by surgery if labs acceptable can discharge with follow up MV Assessment and plan: This is a 69yom with PMHx of HTN and GERD who presents to ED for evaluation of acute onset nausea, abd pain and vomiting in the setting of starting APAP w/ codeine and augmentin s/p tooth extraction two days ago (Thursday 11/09). Taken 3 doses of Patient Augmentin on an empty stomach, in addition to codeine for his tooth pain. Patient was admitted for Acute SBO. #Acute SBO: patient had no hx of any previous surgery, resolved, most likely due to ileus s/p NG tube removal. As per Dr Proctor , if he tolerates diet, patient can go home. Discussed with ID Dr Waterman, patient can continue taking his home antibiotics and to call his office for repeat CBC #ARF: will continue IVF, nephro on the case , hold ARB #Hx of HTN: stable ,will follow #Hx of GerD: protonix #Hx of tooth extractions s/p Augmentin 875mg po bid and Codeine with APAP , on zosyn (renally doses) & vancomycin now, ID on the case. #Acute hypokalemia: on IVF with K 40meq, continue. resolved. DVT: scds, heparin sq Visit type - Emergency Visit Emergency Visit: No - New Patient This patient is new to me today: Yes Date on this admission: 11/14/19 - Critical Care Critical Care patient: No - Discharge Referral Referred to [facility] Med P.C[facility] No - Medication Review Med list reviewed for High Risk Meds patients 65 and older: Yes ATTENDING PHYSICIAN STATEMENT I saw and evaluated the patient. I reviewed the resident's note and discussed the case with the resident. I agree with the resident's findings and plan as documented. SUBJECTIVE: OBJECTIVE: ASSESSMENT AND PLAN:
[2019-11-15] MEDS ORDERED: PIPERACILLIN/TAZOBACTAM 2.25 GM VIAL IVPB ONE (00:43)
[2019-11-15] MEDS ORDERED: DEXTROSE 5%-WATER - 50 ML IVPB ONE (00:43)
[2019-11-15] MEDS: PIPERACILLIN/TAZOB 2.25 GM 2.25 GM in DEXTROSE 5%-WATER - 50 ML IVPB SCH ×2 (01:40→09:31)
[2019-11-15] MEDS: HEPARIN NA (PORCINE) 5,000 UNITS/ML 1ML VIAL SQ SCH (05:21)
[2019-11-15 09:14] LABS: BASO % 0.5 % (0-2.0); EOS % 0.7 % (0-4.5); HEMATOCRIT 39.6 % (35.4-49); HEMOGLOBIN 13.4 GM/dL (11.7-16.9); LYMPH % 6.7 % (8-40); MCH 30.4 pg (25.7-33.7); MCHC 33.8 g/dl (32.0-35.9); MEAN CELL VOLUME 90.1 fl (80-96); MEAN PLT VOLUME 9.4 fl (7.5-11.1); MONO % 8.4 % (3.8-10.2); NEUT % 83.7 % (42.8-82.8); PLATELET COUNT 275 K/MM3 (134-434); RDW 12.9 % (11.9-15.9); WHITE BLOOD COUNT 15.5 K/mm3 (4.0-10.0)
[2019-11-15] MEDS: CHLORHEXIDINE GLUCONATE 0.12% 15ML CUP MM SCH (09:31)
[2019-11-15] MEDS: PANTOPRAZOLE SODIUM 40 MG VIAL IVPUSH SCH (09:31)
--- NOTE | 2019-11-15 09:49 | DS ---
Physical Exam: SUBJECTIVE: Patient seen and examined. Pt stated that his voice hoarseness improved compared to yesterday. Pt tolerated diet and had 1 BM overnight. Denies fevers, chills, SOB, c/p, abdominal pain, n/v/d at this time. OBJECTIVE: Vital Signs Period Temp Pulse Resp BP Sys/Zarco Pulse Ox Last 24 Hr 98.2 F-99.7 F 94-104 18-20 133-135/63-66 90-94 PHYSICAL EXAM GENERAL: AAOx3, not in acute distress. HEENT: NCAT, EOMI, PERRL, moist mucus membranes. CARDIAC: RRR, S1, S2 present. No murmurs RESPIRATORY: CTA b/l, no wheezes ABDOMEN: Soft, nondistended, nontender to palpation. Normoactive bowel sounds. EXTREMITIES: Warm, well-perfused. No edema. SKIN: Warm, dry. LABS Laboratory Last Values WBC 15.5 K/mm3 (4.0-10.0) H 11/15/19 08:20 RBC 4.40 M/mm3 (4.00-5.60) 11/15/19 08:20 Hgb 13.4 GM/dL (11.7-16.9) 11/15/19 08:20 Hct 39.6 % (35.4-49) 11/15/19 08:20 MCV 90.1 fl (80-96) 11/15/19 08:20 MCH 30.4 pg (25.7-33.7) 11/15/19 08:20 MCHC 33.8 g/dl (32.0-35.9) 11/15/19 08:20 RDW 12.9 % (11.9-15.9) 11/15/19 08:20 Plt Count 275 K/MM3 (134-434) 11/15/19 08:20 MPV 9.4 fl (7.5-11.1) 11/15/19 08:20 Absolute Neuts (auto) 13.0 K/mm3 (1.5-8.0) H 11/15/19 08:20 Neutrophils % 83.7 % (42.8-82.8) H 11/15/19 08:20 Lymphocytes % 6.7 % (8-40) L D 11/15/19 08:20 Monocytes % 8.4 % (3.8-10.2) 11/15/19 08:20 Eosinophils % 0.7 % (0-4.5) D 11/15/19 08:20 Basophils % 0.5 % (0-2.0) 11/15/19 08:20 Nucleated RBC % 0 % (0-0) 11/15/19 08:20 VBG pH 7.435 (7.310-7.410) H 11/12/19 09:30 POC VBG pCO2 47.8 mmHg (38-52) 11/12/19 09:30 POC VBG pO2 21.4 mmHg (28-48) L 11/12/19 09:30 VBG HCO3 31.4 mmol/L (23-29) H 11/12/19 09:30 VBG O2 Sat (Levi) 37.2 % (70-80) L 11/12/19 09:30 VBG Base Excess 5.9 mmol/L (-2-2) H 11/12/19 09:30 Sodium 140 mmol/L (136-145) 11/14/19 11:15 Potassium 3.8 mmol/L (3.5-5.1) 11/14/19 11:15 Chloride 107 mmol/L (98-107) 11/14/19 11:15 Carbon Dioxide 25 mmol/L (21-32) 11/14/19 11:15 Anion Gap 8 MMOL/L (8-16) 11/14/19 11:15 BUN 32.5 mg/dL (7-18) H 11/14/19 11:15 Creatinine 1.1 mg/dL (0.55-1.3) 11/14/19 11:15 Est GFR (CKD-EPI)AfAm 79.52 11/14/19 11:15 Est GFR (CKD-EPI)NonAf 68.61 11/14/19 11:15 Random Glucose 75 mg/dL (74-106) 11/14/19 11:15 Lactic Acid 2.5 mmol/L (0.4-2.0) H* 11/12/19 15:00 Calcium 7.8 mg/dL (8.5-10.1) L 11/14/19 11:15 Phosphorus 4.4 mg/dL (2.5-4.9) 11/13/19 07:05 Magnesium 1.8 mg/dL (1.8-2.4) 11/13/19 07:05 Total Bilirubin 1.1 mg/dL (0.2-1) H 11/13/19 07:05 AST 16 U/L (15-37) 11/13/19 07:05 ALT 17 U/L (13-61) 11/13/19 07:05 Alkaline Phosphatase 59 U/L (45-117) 11/13/19 07:05 Creatine Kinase 75 U/L (26-308) 11/12/19 07:40 Troponin I < 0.03 ng/ml (0.00-0.05) 11/12/19 07:40 Total Protein 6.3 g/dl (6.4-8.2) L 11/13/19 07:05 Albumin 3.0 g/dl (3.4-5.0) L 11/13/19 07:05 Lipase 55 U/L (73-393) L 11/12/19 07:40 Beta-Hydroxybutyrate 7.3 mg/dL (0.2-2.8) H 11/12/19 09:30 Urine Color Yellow 11/12/19 18:35 Urine Appearance Slightly 11/12/19 18:35 Urine pH 6.0 (4.5-8) D 11/12/19 18:35 Urine Protein 1+ (NEGATIVE) H 11/12/19 18:35 Urine Glucose (UA) Negative (NEGATIVE) 11/12/19 18:35 Urine Ketones 1+ (NEGATIVE) H 11/12/19 18:35 Urine Blood Negative (NEGATIVE) 11/12/19 18:35 Urine Nitrite Negative (NEGATIVE) 11/12/19 18:35 Urine Bilirubin 1+ (NEGATIVE) H 11/12/19 18:35 Urine Urobilinogen 0.2 (0.2-1.0) 11/12/19 18:35 Ur Leukocyte Esterase Negative (NEGATIVE) 11/12/19 18:35 Urine RBC 0-2 /hpf (0-4) 11/12/19 18:35 Urine WBC 0-2 (NEGATIVE) 11/12/19 18:35 Ur Transition Epith Cell Rare /hpf 11/12/19 07:40 Urine Bacteria Few /hpf (NEGATIVE) 11/12/19 18:35 Hyaline Casts 0-2 /lpf 11/12/19 07:40 Waxy Casts 0-2 11/12/19 07:40 Urine Mucus 1+ 11/12/19 07:40 Urine Eosinophils None seen % (.) 11/12/19 18:35 Ur Random Creatinine 377.6 mg/dL 11/12/19 18:35 Ur Random Sodium 13 MMOL/L (40-220) L 11/12/19 18:35 Ur Random Potassium 183.4 MMOL/L (25-125) H 11/12/19 18:35 Ur Random Chloride < 14 MMOL/L (110-250) L 11/12/19 18:35 COVID-19 (ILA) Not detected (Not Detected) 11/12/19 13:25 HOSPITAL COURSE: 69 yo m w/ PMH of HTN and GERD presented to ED for nausea, abdominal pain and vomiting following starting APAP w/ codeine and augmentin after tooth extraction on Thursday 11/09. Pt took 3 doses of augmentin on an empy stomach in addition to codeine for his tooth pain. CT A/P was positive for gastric and duodenal distention, suspicious for ileus, but cannot r/o obstruction. CT A/P also was positive for PNA, however, pt did not show any respiratory symptoms, thus likely atelectasis. Admitted for Acute SBO secondary likely to medication. Surgery consulted and no surgical intervention at this time. Pt was put on Zosyn and had NG tube inserted with improvement of symptoms. Subsequent CT A/P showed improvement of gastric and duodenal dilation. Pt was able to tolerate a diet after. Leukocytosis improved during hospital course. Pt was discharged with 5 days of augmentin. Pt is hemodynamically stable and medically optimized for discharge home. He will follow up with his PCP regarding repeat CBC for trending decreasing WBC. Date of Admission:11/12/19 Date of Discharge: 11/15/19 Minutes to complete discharge: 36 Discharge Summary Problems reviewed: Yes Reason For Visit: ACUTE KIDNEY INJURY, VOMITING Current Active Problems Leukocytosis, unspecified (Acute) GERD (gastroesophageal reflux disease) (Chronic) HTN (hypertension) (Chronic) Condition: Stable - Instructions Diet, Activity, Other Instructions: YOUR VISIT You came to the hospital because you were experiencing nausea, vomiting and abdominal pain. You were admitted to the hospital for care of these symptoms, and imaging was done which showed you had a, "Small Bowel Obstruction." You were seen by surgery who did not think surgical intervention was needed and instead, a tube was placed in your nose to suction out the excess material in your stomach, with improvement of your symptoms. You are now stable and may return home. MEDICATIONS Please START taking Augmentin for 5 Days 875mg twice a day WITH FOOD starting TODAY 11/15/2019 Please STOP taking the Tylenol with Codeine which was prescribed for your tooth pain after extraction Please STOP taking the Amoxicillin and instead take the Augmentin which is listed above. Please AVOID taking Codeine or other Opiates in the future due to it's ability to cause constipation Please continue to take your home medications as prescribed. ADDITIONAL CARE Please follow-up with Dr. Waterman (Infectious Disease) for evaluation of your infection Please follow-up with Dr. Aaron Proctor (Surgery), for evaluation of your bowel status Please make an appointment to see a primary care provider 1 week from today. If you do not have one, you can call to schedule an appointment at the [facility] residents' clinic, located at [address] [place] [address]. -Follow up with your primary care doctor at [facility] to repeat your Complete Blood Count within a week period. ADDITIONAL INFORMATION Please call [phone] or come directly to the emergency department if you experience recurrence of the symptoms that brought you to the hospital, unusual headache, vision change, shortness of breath, chest pain, numbness, tingling, loss of alertness/awareness, loss of function, unusual bleeding or any alarming symptoms. Referrals: Kelby Olsen MD [Staff Physician] - 2 Weeks David Waterman MD [Staff Physician] - 11/15/19 (Call Dr Waterman's office for CBC with diff, repeat to monitor further ) Aaron Proctor MD [Staff Physician] - 1 Week Disposition: HOME - Home Medications Comprehensive Discharge Medication List: Ambulatory Orders Hydrochlorothiazide 12.5 mg PO DAILY 11/12/19 Telmisartan 20 mg PO DAILY 11/12/19 Amox-Tr/K Cl [Augmentin - 875Mg Tablet] 1 tab PO BID 5 Days #10 tablet 11/15/19 Omeprazole 10 mg PO 11/15/19 This patient is new to me today: Yes Date on this admission: 11/15/19 Emergency Visit: Yes ED Registration Date: 11/12/19 Care time: The patient presented to the Emergency Department on the above date and was hospitalized for further evaluation of their emergent condition. Critical Care patient: No - Discharge Referral Referred to [facility] No ATTENDING PHYSICIAN STATEMENT I saw and evaluated the patient. I reviewed the resident's note and discussed the case with the resident. I agree with the resident's findings and plan as documented. SUBJECTIVE: OBJECTIVE: ASSESSMENT AND PLAN:
[2019-11-15 10:41] VITALS: BP 145/48; PULSE 83; TEMP 98.9
== END 2019-11-15 13:22 | disposition home or self-care (01) | DRG 389 ==
LOC: FER 07:06 → FM/S 11:51 → J6S 20:07
PROVIDERS: ATTEND Internal Medicine
PROC: 0D9670Z Drainage of Stomach with Drainage Device, Via Natural or Artificial Opening (ICD-10-PCS; principal; 2019-11-12)
DX: K56.609 Unspecified intestinal obstruction, unspecified as to partial versus complete obstruction (principal); N17.9 Acute kidney failure, unspecified; E87.3 Alkalosis; J98.11 Atelectasis; I10 Essential (primary) hypertension; I44.4 Left anterior fascicular block; K21.9 Gastro-esophageal reflux disease without esophagitis; E87.6 Hypokalemia
CPT/HCPCS: 36415; 71045-TC-FY; 74018-TC-FY; 74019-TC-FY; 74176-TC; 80048; 80053; 81003; 81015; 82010; 82436; 82550; 82565; 82803; 83605; 83690; 83735; 84100; 84133; 84300; 84484; 85025; 85027; 87040; 87205; 93005; 99285-25; J1644; U0003

== ENCOUNTER 2019-11-16 21:46 | Emergency (ER) | payer BC ==
--- OUTSIDE RECORDS SUMMARY | 2019-11-16 21:50 | XMS ---
:1950 Author Organization [facility] Support Name Relationship Address Phone SE, SELF-EMPLOYED Unavailable Unavailable Unavailable SE Unavailable Unavailable Unavailable YODIT, RISE [address] [place] [address] YODIT, RISE Spouse [address] [place] [address] Re-disclosure Warning The records that you are [...] is protected by Article 27-F of the [facility] Public Health law. If you continue you may haveaccess to information: Regarding HIV / AIDS; Provided by facilities licensed or operated by the [facility] Office of Mental Health; or Provided by the [facility] Office for People With Developmental Disabilities. If such information is present, then the following [facility] mandated warning applies: This information has been [...] law may result in a fine or penitentiary sentence or both. A general authorization for the release of medical or other information is NOT sufficient authorization for further disclosure. Insurance Providers Payer name Policy type Policy ID Covered Covered constitution party's Policy P radha / Coverage constitution party ID relationship to Gil Inf ormation type gil BLUE CROSS [id number] SP [id number] 74 BLUE CROSS [id number] SP [id number] S[employer]IOR PLAN 74 Results ID Date Data Source [id number] 11/12/2019 01:25:00 PM EDT [facility] Name Value Range Interpretation Description Data Sup porting Code Source(s) Document(s ) SARS [facility] coronavirus 2 RNA This lab was ordered by GEOFFREY CHRISTIE and reported by [facility]. Procedure Social History Code Duration Value Status Description Data Source(s ) Smoking Unknown if ever completed Unknown if ever Andrew Colunga smoked [facility]
--- NOTE | 2019-11-16 21:57 | TELE ---
HPI Do you have fever,cough or shortness of breath?: Yes - General Reason For Visit: VIRTUAL VISIT History Source: Family Past History - Medical History Allergies/Adverse Reactions: Allergies Allergy/AdvReac Type Severity Reaction Status Date / Time No Known Allergies Allergy Unverified 11/12/19 07:10 Home Medications: Ambulatory Orders Hydrochlorothiazide 12.5 mg PO DAILY 11/12/19 Telmisartan 20 mg PO DAILY 11/12/19 Amox-Tr/K Cl [Augmentin - 875Mg Tablet] 1 tab PO BID 5 Days #10 tablet 11/15/19 Omeprazole 10 mg PO DAILY 11/15/19 COPD: No HTN: Yes - Psycho-Social/Smoking History Smoking History: Never smoked Have you smoked in the past 12 months: No Review of Systems - Review of Systems Constitutional: Yes: Fever *Physical Exam - Physical Exam 11/16/19 21:57 Spoke to son regarding post Discharge fever advised to bring patient back to the emergency room. Discharge Diagnosis at time of Disposition: Fever - Referrals Follow-up Referral(s): Luanne Quintero [Primary Care Provider] - - Patient Instructions - Discharge Condition at time of Disposition: Stable
== END 2019-11-16 21:57 ==
LOC: JVIRT 21:46
DX: R50.9 Fever, unspecified (principal)
CPT/HCPCS: Q3014-GT

== ENCOUNTER 2019-11-16 23:08 | Inpatient (IN) | payer BC, OTHER ==
--- NOTE | 2019-11-16 23:25 | PDOC ---
History of Present Illness - General Chief Complaint: Respiratory Stated Complaint: FEVER Time Seen by Provider: 11/16/19 23:17 History Source: Patient Exam Limitations: No Limitations - History of Present Illness Initial Comments: 11/16/19 23:21 This is a 61-year-old male who is status post bowel obstruction and discharged 2 days ago. Patient spiked a temp a little over 101 today and now comes in for evaluation. Patient otherwise denies any complaints. Patient denies any nausea, vomiting, diarrhea, abdominal pain, frequency, dysuria, difficulty breathing. Patient however does admit to having an intermittent mild cough. Patient had a negative Kovid test 4 days ago. Allergies: as per nursing notes Past Medical History: none Social history: Lives with family. No smoking. No alcohol. No illicit drugs. Surgical history: None General: + fevers or chills, no weakness, no weight loss HEENT: No change in vision. No sore throat,. No ear pain CardioVascular: no chest discomfort. No shortness of breath Respiratory:+ cough, or wheezing. Gastrointestinal: no nausea, vomiting, diarrhea or constipation, No rectal bleeding Genitourinary: No dysuria, hematuria, or frequency Musculoskeletal: No joint or muscle pain or swelling Neurologic: No headache, vertigo, dizziness or loss of consciousness Psychiatric: nor depression Skin: No rashes or easy bruising Endocrine: no increased thirst or abnormal weight change Allergic: no skin or latex allergy All other systems reviewed and normal Exam: General: Well-nourished well-developed individual, no acute distress HEENT: Throat: Normal, tonsils normal, no erythema or exudate Neck: Supple, no meningeal signs, no lymphadenopathy Eyes::Pupils equal reactive and round, extraocular motion intact Chest: Nontender to palpation Cardiac: S1-S2 normal, regular rate and rhythm, no murmurs rubs or gallops Respiratory: Lung sounds decreased at bases bilateral with some rhonchi bilateral Abdomen: Soft, nondistended, normal bowel sounds, there is no tenderness on palpation diffusely Extremities: Warm, dry, no cyanosis, clubbing, or edema Skin: No rashes Neuro: Alert and oriented x3, CN II - XII intact, nonfocal exam with normal strength, normal sensation, normal reflexes, normal gait, Psych: Normal mood and affect 11/17/19 00:07 Assessment and plan: This is a 69-year-old male with 2 days post discharge for bowel obstruction. Patient had a bilateral infiltrate at time of discharge he was sent home on antibiotics however has spiked a temperature and came in here. Patient's white count is increased from when he was discharged and is now 20,000. Patient given a gram of ceftriaxone and some azithromycin as he does still have a bilateral infiltrate on the chest x-ray however it does appear to be somewhat improved from discharge. Patient will be admitted to the hospital. Past History - Medical History Allergies/Adverse Reactions: Allergies Allergy/AdvReac Type Severity Reaction Status Date / Time No Known Allergies Allergy Verified 11/16/19 23:11 Home Medications: Ambulatory Orders Hydrochlorothiazide 12.5 mg PO DAILY 11/12/19 Telmisartan 20 mg PO DAILY 11/12/19 Amox-Tr/K Cl [Augmentin - 875Mg Tablet] 1 tab PO BID 5 Days #10 tablet 11/15/19 Omeprazole 10 mg PO DAILY 11/15/19 COPD: No HTN: Yes - Psycho-Social/Smoking History Smoking History: Never smoked Have you smoked in the past 12 months: No ED Treatment Course - LABORATORY CBC & Chemistry Diagram: 11/16/19 23:25 11/16/19 23:25 Discharge - Discharge Information Problems reviewed: Yes Clinical Impression/Diagnosis: Bilateral pneumonia Qualifiers: Pneumonia type: due to unspecified organism Lung location: lower lobe of lung Qualified Code(s): J18.9 - Pneumonia, unspecified organism Condition: Stable Disposition: HOME - Admission Yes - Follow up/Referral - Patient Discharge Instructions - Post Discharge Activity
--- OUTSIDE RECORDS SUMMARY | 2019-11-16 23:27 | XMS ---
:1950 [facility] Organization [facility] Support Name Relationship Address Phone SE, SELF-EMPLOYED Unavailable Unavailable Unavailable SE Unavailable Unavailable Unavailable YODIT, RISE [address] [place] [address] YODIT, RISE Spouse [address] [place] [address] Re-disclosure Warning The records that you are [...] is protected by Article 27-F of the [facility] Public Health law. If you continue you may haveaccess to information: Regarding HIV / AIDS; Provided by facilities licensed or operated by the [facility] Office of Mental Health; or Provided by the [facility] Office for People With Developmental Disabilities. If such information is present, then the following [facility] mandated warning applies: This information has [...] law may result in a fine or senior care sentence or both. A general authorization for the release of medical or other information is NOT sufficient authorization for further disclosure. Insurance Providers Payer name Policy type Policy ID Covered Covered constitution party's Policy P radha / Coverage constitution party ID relationship to Gil Inf ormation type gil BLUE CROSS [id number] SP [id number] S[employer] PLAN 74 BLUE CROSS [id number] SP [id number] SENIOR PLAN 74 Results ID Date Data Source [id number] 11/12/2019 01:25:00 PM EDT [facility] Name Value Range Interpretation Description Data Sup porting Code Source(s) Document(s ) SARS [facility] coronavirus 2 RNA This lab was ordered by GEOFFREY CHRISTIE and reported by [facility]. Procedure Social History Code Duration Value Status Description Data Source(s ) Smoking Unknown if ever completed Unknown if ever Andrew Colunga smoked [facility]
[2019-11-16 23:40] LABS: HEMATOCRIT 38.7 % (35.4-49); HEMOGLOBIN 13.1 GM/dl (11.7-16.9); MCH 30.5 pg (25.7-33.7); MCHC 33.9 g/dl (32.0-35.9); MEAN CELL VOLUME 89.9 fl (80-96); MEAN PLT VOLUME 8.9 fl (7.5-11.1); PLATELET COUNT 318 K/MM3 (134-434); RBC 4.31 M/mm3 (4.00-5.60); RDW 11.6 % (11.9-15.9); WHITE BLOOD COUNT 20.2 K/mm3 (4.0-10.8)
[2019-11-16 23:48] LABS: AMORP URATES 1+ /hpf (NONE SEEN); EPITHELIAL CELLS FEW /hpf; URINE MUCUS 1+
[2019-11-16 23:56] LABS: ALBUMIN 2.8 g/dl (3.4-5.0); BILIRUBIN,TOTAL 0.9 mg/dl (0.2-1); CALCIUM 7.9 mg/dl (8.5-10); CREATININE 1.2 mg/dl (0.55-1.3); POTASSIUM 3.5 mmol/L (3.5-5.1); TOT PROT 6.1 g/dl (6.4-8.2)
[2019-11-17] MEDS ORDERED: CEFTRIAXONE 1,000 MG in DEXTROSE 5%-WATER - 50 ML IVPB ONE
[2019-11-17] MEDS ORDERED: AZITHROMYCIN IVPB 500 MG in DEXTROSE 5%-WATER - 250 ML IVPB ONE (00:01)
[2019-11-17] MEDS ORDERED: AZITHROMYCIN 500 MG VIAL IVPB ONE (00:13)
[2019-11-17 00:14] LABS: PLATELET ESTIMATE ADEQUATE
[2019-11-17] MEDS ORDERED: cefTRIAXone SODIUM 1 GM VIAL ONE (00:14)
[2019-11-17] MEDS ORDERED: SODIUM CHLORIDE 1,000 ML IV SCH (00:45)
--- OUTSIDE RECORDS SUMMARY | 2019-11-17 00:48 | XMS ---
:1950 Author Organization [facility] Support Name Relationship Address Phone SE, SELF-EMPLOYED Unavailable Unavailable Unavailable SE Unavailable Unavailable Unavailable YODIT, RISE [address] [place] [address] YODIT, RISE Spouse [address] [place] [address] Re-disclosure Warning The records that you are [...] is protected by Article 27-F of the [facility] Public Health law. If you continue you may haveaccess to information: Regarding HIV / AIDS; Provided by facilities licensed or operated by the [facility] Office of Mental Health; or Provided by the [facility] Office for People With Developmental Disabilities. If such information is present, then the following [facility] mandated warning applies: This information has [...] may result in a fine or senior living sentence or both. A general authorization for the release of medical or other information is NOT sufficient authorization for further disclosure. Insurance Providers Payer name Policy type Policy ID Covered Covered republican's Policy P radha / Coverage republican ID relationship to Gil Inf ormation type gil BLUE CROSS [id number] SP [id number] S[employer]IOR PLAN 74 BLUE CROSS [id number] SP [id number] S[employer]IOR PLAN 74 Results ID Date Data Source [id number] 11/12/2019 01:25:00 PM EDT [facility] Name Value Range Interpretation Description Data Sup porting Code Source(s) Document(s ) SARS [facility] coronavirus 2 RNA This lab was ordered by GEOFFREY CHRISTIE and reported by [facility]. Procedure Social History Code Duration Value Status Description Data Source(s ) Smoking Unknown if ever completed Unknown if ever Andrew Colunga smoked [facility]
[2019-11-17] MEDS ORDERED: ALBUTEROL SO4 HFA INHALER IH PRN (00:49)
[2019-11-17 02:17] VITALS: BMI 27.6
[2019-11-17 08:49] LABS: ALBUMIN 2.4 g/dl (3.4-5.0); BILIRUBIN,TOTAL 0.9 mg/dl (0.2-1); CALCIUM 7.9 mg/dl (8.5-10); POTASSIUM 3.5 mmol/L (3.5-5.1); TOT PROT 5.5 g/dl (6.4-8.2)
[2019-11-17 08:52] LABS: BASO % 0.3 % (0-2.0); EOS % 1.6 % (0-4.5); HEMATOCRIT 36.2 % (35.4-49); HEMOGLOBIN 12.2 GM/dl (11.7-16.9); LYMPH % 9.8 % (8-40); MCH 30.7 pg (25.7-33.7); MCHC 33.6 g/dl (32.0-35.9); MEAN CELL VOLUME 91.3 fl (80-96); MEAN PLT VOLUME 8.9 fl (7.5-11.1); NEUT % 78.3 % (42.8-82.8); PLATELET COUNT 300 K/MM3 (134-434); RBC 3.97 M/mm3 (4.00-5.60); RDW 11.7 % (11.9-15.9); WHITE BLOOD COUNT 16.2 K/mm3 (4.0-10.8)
--- NOTE | 2019-11-17 09:26 | HP ---
CHIEF COMPLAINT: Fever PCP: [facility], Dr. Box HISTORY OF PRESENT ILLNESS: 69 year-old male with a PMH significant for HTN, GERD, and discharged 11/14 from [facility] for a SBO which was medically managed and did not require surgical intervention. Patient returned to the ED on 11/15 after his son took his temperature and it was 101.3. Patient complains of a slight cough but otherwise feels well. He denies sweats, chills. Denies SOB, PARRISH, nausea, vomiting, diarrhea. He is tolerating PO intake. 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 Father (69) ? lung cancer, [place]. Sister (65) alzheimers Allergies No Known Allergies Allergy (Verified 11/16/19 23:11) HOME MEDICATIONS: Home Medications Medication Instructions Recorded Hydrochlorothiazide 12.5 mg PO DAILY 11/12/19 Telmisartan 20 mg PO DAILY 11/12/19 Amox-Tr/K Cl [Augmentin - 875Mg 1 tab PO BID 5 Days #10 tablet 11/15/19 Tablet] Omeprazole 10 mg PO DAILY 11/15/19 REVIEW OF SYSTEMS CONSTITUTIONAL: +fever Absent: chills, diaphoresis, generalized weakness, malaise, loss of appetite, weight change HEENT: Absent: rhinorrhea, nasal congestion, throat pain, throat swelling, difficulty swallowing, mouth swelling, ear pain, eye pain, visual changes CARDIOVASCULAR: Absent: chest pain, syncope, palpitations, irregular heart rate, ligh theadedness, peripheral edema RESPIRATORY: +cough Absent: shortness of breath, dyspnea with exertion, orthopnea, wheezing, stridor, hemoptysis GASTROINTESTINAL: Absent: abdominal pain, abdominal distension, nausea, vomiting, diarrhea, constipation, melena, hematochezia GENITOURINARY: Absent: dysuria, frequency, urgency, hesitancy, hematuria, flank pain, genital pain MUSCULOSKELETAL: Absent: myalgia, arthralgia, joint swelling, back pain, neck pain SKIN: Absent: rash, itching, pallor HEMATOLOGIC/IMMUNOLOGIC: Absent: easy bleeding, easy bruising, lymphadenopathy, frequent infections ENDOCRINE: Absent: unexplained weight gain, unexplained weight loss, heat intolerance, cold intolerance NEUROLOGIC: Absent: headache, focal weakness or paresthesias, dizziness, unsteady gait, seizure, mental status changes, bladder or bowel incontinence PSYCHIATRIC: Absent: anxiety, depression, suicidal or homicidal ideation, hallucinations. PHYSICAL EXAMINATION Vital Signs - 24 hr 11/16/19 11/17/19 11/17/19 23:13 01:50 04:45 Temperature 98.2 F 98.4 F 99.1 F Pulse Rate 93 H 86 78 Respiratory 18 18 18 Rate Blood Pressure 133/71 126/55 L 122/50 L O2 Sat by Pulse 94 L 95 98 Oximetry (%) GENERAL: Awake, alert, and fully oriented, in no acute distress. HEAD: Normal with no signs of trauma. EYES: Pupils equal, round and reactive to light, extraocular movements intact, sclera anicteric, conjunctiva clear. No lid lag. EARS, NOSE, THROAT: Ears normal, nares patent, oropharynx clear without exud ates. Moist mucous membranes. NECK: Normal range of motion, supple without lymphadenopathy, JVD, or masses. LUNGS: Breath sounds equal, clear to auscultation bilaterally. No wheezes, and no crackles. No accessory muscle use. HEART: Regular rate and rhythm, normal S1 and S2 without murmur, rub or gallop. ABDOMEN: Soft, nontender, not distended, normoactive bowel sounds, no guarding, no rebound, no masses. No hepatomegaly or splenomegaly. MUSCULOSKELETAL: Normal range of motion at all joints. No bony deformities or tenderness. No CVA tenderness. UPPER EXTREMITIES: 2+ pulses, warm, well-perfused. No cyanosis. No clubbing. No peripheral edema. LOWER EXTREMITIES: 2+ pulses, warm, well-perfused. No calf tenderness. No peripheral edema. NEUROLOGICAL: Cranial nerves II-XII intact. Normal speech. Normal gait. PSYCHIATRIC: Cooperative. Good eye contact. Appropriate mood and affect. SKIN: Warm, dry, normal turgor, no rashes or lesions noted, normal capillary refill. Laboratory Results - last 24 hr 11/16/19 11/16/19 11/16/19 23:25 23:25 23:25 WBC 20.2 H RBC 4.31 Hgb 13.1 Hct 38.7 MCV 89.9 MCH 30.5 MCHC 33.9 RDW 11.6 L Plt Count 318 MPV 8.9 Absolute Neuts (auto) 16.1 Neutrophils % No Result Required. Neutrophils % (Manual) 77.0 Band Neutrophils % 2.0 Lymphocytes % No Result Required. Lymphocytes % (Manual) 11.0 Monocytes % Monocytes % (Manual) 9 Eosinophils % Eosinophils % (Manual) 1.0 Basophils % Platelet Estimate Adequate Platelet Comment Rare giant plts Sodium 131 L Potassium 3.5 Chloride 100 Carbon Dioxide 22 Anion Gap 9 BUN 30.0 H Creatinine 1.2 Est GFR (CKD-EPI)AfAm 71.58 Est GFR (CKD-EPI)NonAf 61.76 Random Glucose 118 H Calcium 7.9 L Total Bilirubin 0.9 AST 24 ALT 17 Alkaline Phosphatase 62 D Total Protein 6.1 L Albumin 2.8 L Urine Color Yellow Urine Appearance Clear Urine pH 5.5 Urine Protein 1+ H Urine Glucose (UA) Negative Urine Ketones Trace Urine Blood Trace-lysed Urine Nitrite Negative Urine Bilirubin 1+ H Urine Urobilinogen 0.2 Ur Leukocyte Esterase Negative Urine RBC 2-5 Urine WBC 0-2 Ur Transition Epith Cell Few Amorphous Urates 1+ Urine Mucus 1+ 11/17/19 11/17/19 07:14 07:14 WBC 16.2 H RBC 3.97 L Hgb 12.2 Hct 36.2 MCV 91.3 MCH 30.7 MCHC 33.6 RDW 11.7 L Plt Count 300 MPV 8.9 Absolute Neuts (auto) 12.7 Neutrophils % 78.3 Neutrophils % (Manual) Band Neutrophils % Lymphocytes % 9.8 D Lymphocytes % (Manual) Monocytes % 10.0 D Monocytes % (Manual) Eosinophils % 1.6 D Eosinophils % (Manual) Basophils % 0.3 Platelet Estimate Platelet Comment Sodium 134 L Potassium 3.5 Chloride 102 Carbon Dioxide 23 Anion Gap 9 BUN 24.0 H Creatinine 1.0 Est GFR (CKD-EPI)AfAm 89.23 Est GFR (CKD-EPI)NonAf 76.99 Random Glucose 93 Calcium 7.9 L Total Bilirubin 0.9 AST 17 ALT 15 Alkaline Phosphatase 52 D Total Protein 5.5 L Albumin 2.4 L Urine Color Urine Appearance Urine pH Urine Protein Urine Glucose (UA) Urine Ketones Urine Blood Urine Nitrite Urine Bilirubin Urine Urobilinogen Ur Leukocyte Esterase Urine RBC Urine WBC Ur Transition Epith Cell Amorphous Urates Urine Mucus ASSESSMENT/PLAN 69 year-old male with a PMH significant for HTN, GERD, and discharged 11/14 from [facility] for a SBO which was medically managed and did not require surgical intervention. Patient returned to the ED on 11/15 after his son took his temperature and it was 101.3. Admitted for HCAP. HCAP --CT on 11/12 (during previous admission) showed bilateral lower lobe airspace opacities suspicious for pneumonia and pleural effusions --11/15 CXR shows bibasilar infiltrates and improved pleural effusions --WBC 20.2k on admission, trending down; afebrile since admission --azithro (day #1), Zosyn (day #1) --ID following --CT chest pending --cultures pending Hypertension --losartan 25mg daily (forumulary equivalent of home med) s/p SBO --stable, tolerating PO GERD --hold protonix, contraindicated in patients 65+, increases chance of c.diff, on antibiotics FEN Fluids: PO intake adequate Electrolytes: replete as indicated Nutrition: low sodium DVT prophylaxis: subq lovenox Physical therapy Dispo: continues to require inpatient care. Full code. Family Medical History Family History: As Documented Visit type - Medication Review Med list reviewed for High Risk Meds patients 65 and older: Yes - Emergency Visit Emergency Visit: Yes ED Registration Date: 11/17/19 Care time: The patient presented to the Emergency Department on the above date and was hospitalized for further evaluation of their emergent condition. - New Patient This patient is new to me today: Yes Date on this admission: 11/17/19 - Critical Care Critical Care patient: No
[2019-11-17] MEDS: ENOXAPARIN NA (PORCINE) 40 MG/0.4 ML DISP.SYRIN SQ SCH (10:17)
--- NOTE | 2019-11-17 10:59 | EKG ---
Test Reason : Blood Pressure : / mmHG Vent. Rate : 077 BPM Atrial Rate : 077 BPM P-R Int : 124 ms QRS Dur : 102 ms QT Int : 406 ms P-R-T Axes : 074 -04 030 degrees QTc Int : 459 ms NORMAL SINUS RHYTHM NORMAL ECG WHEN COMPARED WITH ECG OF 12-NOV-2019 07:33, LEFT ANTERIOR FASCICULAR BLOCK IS NO LONGER PRESENT NONSPECIFIC T WAVE ABNORMALITY NOW EVIDENT IN INFERIOR LEADS Confirmed by MD Su, Shin ([id number]) on 11/17/2019 10:58:51 AM Referred By: BRITTON ESCAMILLA Confirmed By:Shin Blue MD
--- NOTE | 2019-11-17 11:15 | PN ---
Progress Note (short form) - Note Progress Note: ID CONSULT DICTATED R/O HCAP LEUKOCYTOSIS S/P BOWEL OBSTRUCTION AWAIT C/S EMPIRIC ZITHROMAX/ ZOSYN
[2019-11-17] MEDS ORDERED: PIPERACILLIN/TAZOBACTAM 3.375 GM VIAL IVPB ONE ×3 (11:25→23:53)
[2019-11-17] MEDS ORDERED: DEXTROSE 5%-WATER - 50 ML IVPB ONE ×3 (11:25→23:53)
[2019-11-17] MEDS: PIPERACILLIN/TAZOB 3.375 GM 3.375 GM in DEXTROSE 5%-WATER - 50 ML IVPB SCH ×2 (11:29→17:32)
[2019-11-17] MEDS: AZITHROMYCIN IVPB 500 MG/250 ML BAG IVPB SCH (11:30)
[2019-11-17] MEDS ORDERED: LOSARTAN POTASSIUM 50 MG TABLET PO SCH (12:45)
[2019-11-17] MEDS: LOSARTAN POTASSIUM 25 MG TABLET PO SCH (13:21)
--- NOTE | 2019-11-17 15:18 | CONS ---
INFECTIOUS DISEASE CONSULTATION DATE OF CONSULTATION: DATE OF DICTATION: 11/17/2019 HISTORY: The patient is a 69-year-old male evaluated for pneumonia. He was recently admitted to [facility] after presenting with bowel obstruction. He was hospitalized from November 11 through November 14. He had presented with epigastric pain and belching. He was found to have a high grade small-bowel obstruction. According to the notes, he had recently had a tooth extraction and was treated with amoxicillin and Vicodin. His course at that time was complicated by markedly elevated white blood cell count of 20,000. An NG tube was placed. He was successfully decompressed. He was empirically treated with Zosyn for possible GI source of infection. Cultures were unrevealing. His NG tube was removed. He was started on a diet and the diet was advanced. He was switched to p.o. Augmentin. He was discharged home on November 15, 2019. He now returns with 2-day history of fever to 101. He otherwise denied any complaint. He denied any chest pain, shortness of breath. He does have occasional nonproductive cough. A COVID test 4 days prior to admission was negative. He denied any abdominal complaints. No abdominal pain, nausea or vomiting. He has been moving his bowels. Chest x-ray on admission shows bibasilar infiltrates. A CAT scan of the chest was subsequently performed and shows bilateral pneumonia involving the lower lobes with associated bilateral pleural effusions. He denies any ill contacts. No recent travel. Recent hospitalization as described. He is a nonsmoker. SYSTEMS REVIEW: Neurologic: No loss of . Cardiac: Negative chest pain or palpitations. Respiratory: As per HPI. Gastrointestinal: As per HPI. Genitourinary: Negative for urinary tract infection. ALLERGIES: No known allergies. MEDICATIONS: At the present time include Zithromax, Zosyn, albuterol, Lovenox, losartan. PHYSICAL EXAMINATION: General: He is awake. He is in no acute respiratory distress. Vital Signs: Temperature 98.8, blood pressure 141/55, pulse 91 regular, respirations 17 per minute. HEENT: Sclerae are anicteric. Heart: Sounds S1, S2. Lungs: Diminished breath sounds at the bases bilaterally. Abdomen: Soft. No tenderness elicited. Extremities: Negative. IMPRESSION: 1. Rule out hospital-acquired versus aspiration pneumonia. 2. Marked leukocytosis, rule out sepsis secondary to lung source. 3. Status post small-bowel obstruction, now resolved. Await sepsis workup. Empiric antibiotic coverage for possible hospital-acquired versus aspiration pneumonia with Zosyn and Zithromax. Obtain sputum culture, urine legionella antigen. Aspiration precautions. Thank you for the kind referral. MARILYNN CHUA M.D. [id number]
[2019-11-17] MEDS ORDERED: ACETAMINOPHEN 325 MG TABLET (FP) PO PRN (22:38)
[2019-11-18] MEDS: PIPERACILLIN/TAZOB 3.375 GM 3.375 GM in DEXTROSE 5%-WATER - 50 ML IVPB SCH ×3 (01:22→17:21)
[2019-11-18] MEDS ORDERED: LOCK ITEM NR ONE (03:35)
[2019-11-18] MEDS ORDERED: PIPERACILLIN/TAZOBACTAM 3.375 GM VIAL IVPB ONE ×2 (09:12→17:16)
[2019-11-18] MEDS ORDERED: DEXTROSE 5%-WATER - 50 ML IVPB ONE ×2 (09:12→17:16)
--- NOTE | 2019-11-18 09:18 | PN ---
Physical Exam: SUBJECTIVE: Patient seen and examined at bedside. Feels well. Minimal cough. Denies fever, sweats, chills. OBJECTIVE: Vital Signs Period Temp Pulse Resp BP Sys/Zarco Pulse Ox Last 24 Hr 97.7 F-99.8 F 67-98 18-19 111-133/49-57 86-96 GENERAL: The patient is awake, alert, and fully oriented, in no acute distress. HEAD: Normal with no signs of trauma. LUNGS: Diffuse rales HEART: Regular rate and rhythm, S1, S2 ABDOMEN: Soft, nontender, nondistended EXTREMITIES: 2+ pulses, warm, well-perfused, no edema. NEUROLOGICAL: Cranial nerves II through XII grossly intact. Normal speech Active Medications Generic Name Dose Route Start Last Admin Trade Name Freq PRN Reason Stop Dose Admin Acetaminophen 650 mg 11/17/19 22:38 11/17/19 22:45 Tylenol - PO 650 mg Q6H PRN Administration PAIN LEVEL 4 - 6 Albuterol/Ipratropium 1 amp 11/18/19 14:00 Duoneb - NEB RTID NAHEED Enoxaparin Sodium 40 mg 11/17/19 10:00 11/17/19 10:17 Lovenox - SQ 40 mg DAILY NAHEED Administration Piperacillin Sod/Tazobactam 50 mls @ 100 mls/hr 11/17/19 11:15 11/18/19 01:22 Sod 3.375 gm/ Dextrose IVPB 100 mls/hr Q8H-IV NAHEED Administration Protocol Azithromycin 500 mg in 250 mls @ 250 mls/hr 11/17/19 11:45 11/17/19 11:30 Zithromax 500mg Ivpb (Pre-Docked) IVPB 250 mls/hr DAILY NAHEED Administration Losartan Potassium 25 mg 11/17/19 13:00 11/17/19 13:21 Cozaar - PO 25 mg DAILY NAHEED Administration ASSESSMENT/PLAN: 69 year-old male with a PMH significant for HTN, GERD, and discharged 11/14 from [facility] for a SBO. Admitted for HCAP. Hypoxic respiratory failure Bilateral HCAP Sepsis --CT on 11/12 (during previous admission) showed bilateral lower lobe airspace opacities suspicious for pneumonia and pleural effusions --CT on 11/16 shows extensive bilateral pneumonia with pleural effusions --as of 11/16 met sepsis criteria: WBC 16.2k, p98, demonstrated bilateral pneumonia on CT --hypoxic: on pre-post exercise testing dropped to 86% on room air with flat surface ambulation --blood cultures NGTD, urine PNA antigens negative, sputum culture pending, COVID pending --continue azithro (day #2) and Zosyn (day #2) --duonebs scheduled --ID following Hypertension --losartan 25mg daily (forumulary equivalent of home med) s/p SBO --stable, tolerating PO GERD --hold protonix, contraindicated in patients 65+, increases chance of c.diff, on antibiotics FEN Fluids: PO intake adequate Electrolytes: replete as indicated Nutrition: low sodium DVT prophylaxis: subq lovenox Physical therapy Dispo: continues to require inpatient care. Full code. Visit type - Emergency Visit Emergency Visit: Yes ED Registration Date: 11/17/19 Care time: The patient presented to the Emergency Department on the above date and was hospitalized for further evaluation of their emergent condition. - New Patient This patient is new to me today: No - Critical Care Critical Care patient: No - Medication Review Med list reviewed for High Risk Meds patients 65 and older: Yes
[2019-11-18] MEDS: AZITHROMYCIN IVPB 500 MG/250 ML BAG IVPB SCH (09:34)
[2019-11-18] MEDS: ENOXAPARIN NA (PORCINE) 40 MG/0.4 ML DISP.SYRIN SQ SCH (09:34)
[2019-11-18] MEDS: LOSARTAN POTASSIUM 25 MG TABLET PO SCH (09:35)
--- NOTE | 2019-11-18 10:31 | PN ---
Progress Note, Physician Chief Complaint: AWAKE, AMBULATORY NO C/O DYSPNEA/COUGH /CHEST PAIN AT REST NURSE REPORTS PT DESATS WITH AMBULATION AFEBRILE WBC IMPROVED NO GI COMPLAINTS NO N/V + BM - Current Medication List Current Medications: Active Medications Acetaminophen (Tylenol -) 650 mg PO Q6H PRN PRN Reason: PAIN LEVEL 4 - 6 Last Admin: 11/17/19 22:45 Dose: 650 mg Documented by: Albuterol/Ipratropium (Duoneb -) 1 amp NEB RTID NAHEED Enoxaparin Sodium (Lovenox -) 40 mg SQ DAILY [facility] Last Admin: 11/18/19 09:34 Dose: 40 mg Documented by: Piperacillin Sod/Tazobactam (Sod 3.375 gm/ Dextrose) 50 mls @ 100 mls/hr IVPB Q8H-IV NAHEED; Protocol Last Admin: 11/18/19 09:34 Dose: 100 mls/hr Documented by: Azithromycin (Zithromax 500mg Ivpb (Pre-Docked)) 500 mg in 250 mls @ 250 mls/hr IVPB DAILY [facility] Last Admin: 11/18/19 09:34 Dose: 250 mls/hr Documented by: Losartan Potassium (Cozaar -) 25 mg PO DAILY [facility] Last Admin: 11/18/19 09:35 Dose: 25 mg Documented by: - Objective Vital Signs: Vital Signs Temperature 97.7 F 11/18/19 09:03 Pulse Rate 79 11/18/19 09:03 Respiratory Rate 18 11/18/19 09:03 Blood Pressure 118/57 L 11/18/19 09:03 O2 Sat by Pulse Oximetry (%) 96 11/18/19 06:00 Constitutional: Yes: No Distress Eyes: Yes: Conjunctiva Clear Cardiovascular: Yes: Regular Rate and Rhythm, S1, S2 Respiratory: Yes: CTA Bilaterally Gastrointestinal: Yes: Normal Bowel Sounds Edema: No Labs: CBC, BMP 11/17/19 07:14 11/17/19 07:14 Assessment/Plan BIBASILAR PNEUMONIA ? ASPIRATION ?HCAP AWAIT C/S CONTINUE EMPIRIC ZITHROMAX/ ZOSYN ? PULM EVALUATION FOR HOME O2?
[2019-11-18 10:49] LABS: BASO % 0.3 % (0-2.0); HEMATOCRIT 36.5 % (35.4-49); HEMOGLOBIN 12.5 GM/dl (11.7-16.9); LYMPH % 13.8 % (8-40); MCHC 34.2 g/dl (32.0-35.9); MEAN CELL VOLUME 90.6 fl (80-96); MEAN PLT VOLUME 8.5 fl (7.5-11.1); MONO % 12.8 % (3.8-10.2); NEUT % 71.1 % (42.8-82.8); PLATELET COUNT 342 K/MM3 (134-434); RBC 4.03 M/mm3 (4.00-5.60); RDW 12.1 % (11.9-15.9)
[2019-11-18 10:52] LABS: ALBUMIN 2.3 g/dl (3.4-5.0); BILIRUBIN,TOTAL 0.7 mg/dl (0.2-1); CALCIUM 7.6 mg/dl (8.5-10); POTASSIUM 3.3 mmol/L (3.5-5.1); TOT PROT 5.4 g/dl (6.4-8.2)
[2019-11-18] MEDS: POTASSIUM CHLORIDE TABS 20 MEQ TABLET.ER (FP) PO SCH ×2 (11:54→17:21)
[2019-11-18] MEDS: ALBUTEROL SO4 2.5/IPRATROPIUM 0.5 INH SOL 3 ML VIAL.NEB. NEB SCH ×2 (12:04→20:03)
[2019-11-18] MEDS ORDERED: ALBUTEROL SO4 2.5/IPRATROPIUM 0.5 INH SOL 3 ML VIAL.NEB. NEB SCH (14:00)
[2019-11-19] MEDS ORDERED: PIPERACILLIN/TAZOBACTAM 3.375 GM VIAL IVPB ONE ×3 (00:50→17:26)
[2019-11-19] MEDS ORDERED: DEXTROSE 5%-WATER - 50 ML IVPB ONE ×3 (00:50→17:26)
[2019-11-19] MEDS: PIPERACILLIN/TAZOB 3.375 GM 3.375 GM in DEXTROSE 5%-WATER - 50 ML IVPB SCH ×3 (01:10→17:55)
[2019-11-19] MEDS: ALBUTEROL SO4 2.5/IPRATROPIUM 0.5 INH SOL 3 ML VIAL.NEB. NEB SCH ×3 (08:52→19:53)
[2019-11-19] MEDS: AZITHROMYCIN IVPB 500 MG/250 ML BAG IVPB SCH (10:05)
[2019-11-19] MEDS: LOSARTAN POTASSIUM 25 MG TABLET PO SCH (10:06)
[2019-11-19] MEDS: ENOXAPARIN NA (PORCINE) 40 MG/0.4 ML DISP.SYRIN SQ SCH (10:06)
--- NOTE | 2019-11-19 13:28 | PN ---
Progress Note, Physician Chief Complaint: AWAKE, AMBULATORY NO C/O DYSPNEA/COUGH /CHEST PAIN AT REST ON RA DESATS WITH AMBULATION 88% AFEBRILE WBC IMPROVED NO GI COMPLAINTS NO N/V + BM - Current Medication List Current Medications: Active Medications Acetaminophen (Tylenol -) 650 mg PO Q6H PRN PRN Reason: PAIN LEVEL 4 - 6 Last Admin: 11/17/19 22:45 Dose: 650 mg Documented by: Albuterol/Ipratropium (Duoneb -) 1 amp NEB RTID [facility] Last Admin: 11/19/19 08:52 Dose: 1 amp Documented by: Enoxaparin Sodium (Lovenox -) 40 mg SQ DAILY [facility] Last Admin: 11/19/19 10:06 Dose: 40 mg Documented by: Piperacillin Sod/Tazobactam (Sod 3.375 gm/ Dextrose) 50 mls @ 100 mls/hr IVPB Q8H-IV NAHEED; Protocol Last Admin: 11/19/19 10:05 Dose: 100 mls/hr Documented by: Azithromycin (Zithromax 500mg Ivpb (Pre-Docked)) 500 mg in 250 mls @ 250 mls/hr IVPB DAILY NAHEED Last Admin: 11/19/19 10:05 Dose: 250 mls/hr Documented by: Losartan Potassium (Cozaar -) 25 mg PO DAILY [facility] Last Admin: 11/19/19 10:06 Dose: 25 mg Documented by: - Objective Vital Signs: Vital Signs Temperature 98.3 F 11/19/19 04:00 Pulse Rate 95 H 11/19/19 07:55 Respiratory Rate 18 11/19/19 07:55 Blood Pressure 97/82 11/19/19 04:00 O2 Sat by Pulse Oximetry (%) 95 11/19/19 07:55 Constitutional: Yes: No Distress Eyes: Yes: Conjunctiva Clear Cardiovascular: Yes: Regular Rate and Rhythm, S1, S2 Respiratory: Yes: Other (CREPITATIONS, BASES) Gastrointestinal: Yes: Normal Bowel Sounds, Soft. No: Tenderness Edema: No Labs: CBC, BMP 11/18/19 10:19 11/18/19 10:19 Assessment/Plan BIBASILAR PNEUMONIA ? ASPIRATION ?HCAP AWAIT C/S CONTINUE EMPIRIC ZOSYN IF STABLE RESUME AUGMENTIN 875NG PO BID 7D ? PULM EVALUATION FOR HOME O2?
--- NOTE | 2019-11-19 14:20 | PN ---
Physical Exam: SUBJECTIVE: Patient seen and examined oob ambulating around room. Gets SOB with ambulation. OBJECTIVE: Vital Signs Period Temp Pulse Resp BP Sys/Zarco Pulse Ox Last 24 Hr 98.0 F-99 F 72-95 18-18 97-118/46-82 94-97 GENERAL: The patient is awake, alert, and fully oriented, in no acute distress. HEAD: Normal with no signs of trauma. LUNGS: Bibasilar crackles HEART: Regular rate and rhythm, S1, S2 ABDOMEN: Soft, nontender, nondistended EXTREMITIES: 2+ pulses, warm, well-perfused, no edema. NEUROLOGICAL: Cranial nerves II through XII grossly intact. Normal speech Laboratory Results - last 24 hr 11/16/19 23:30 COVID-19 (ILA) Not detected Active Medications Generic Name Dose Route Start Last Admin Trade Name Freq PRN Reason Stop Dose Admin Acetaminophen 650 mg 11/17/19 22:38 11/17/19 22:45 Tylenol - PO 650 mg Q6H PRN Administration PAIN LEVEL 4 - 6 Albuterol/Ipratropium 1 amp 11/18/19 12:00 11/19/19 08:52 Duoneb - NEB 1 amp RTID NAHEED Administration Enoxaparin Sodium 40 mg 11/17/19 10:00 11/19/19 10:06 Lovenox - SQ 40 mg DAILY NAHEED Administration Piperacillin Sod/Tazobactam 50 mls @ 100 mls/hr 11/17/19 11:15 11/19/19 10:05 Sod 3.375 gm/ Dextrose IVPB 100 mls/hr Q8H-IV NAHEED Administration Protocol Azithromycin 500 mg in 250 mls @ 250 mls/hr 11/17/19 11:45 11/19/19 10:05 Zithromax 500mg Ivpb (Pre-Docked) IVPB 250 mls/hr DAILY NAHEED Administration Losartan Potassium 25 mg 11/17/19 13:00 11/19/19 10:06 Cozaar - PO 25 mg DAILY NAHEED Administration ASSESSMENT/PLAN: 69 year-old male with a PMH significant for HTN, GERD, and discharged 11/14 from [facility] for a SBO. Admitted for HCAP. Hypoxic respiratory failure Bilateral HCAP Sepsis --CT on 11/12 (during previous admission) showed bilateral lower lobe airspace opacities suspicious for pneumonia and pleural effusions --CT on 11/16 shows extensive bilateral pneumonia with pleural effusions --as of 11/16 met sepsis criteria: WBC 16.2k, p98, demonstrated bilateral pneumonia on CT --hypoxia resolved, pre-post exercise today maintained sat of 92% on room air with flat surface ambulation --blood cultures NGTD, urine PNA antigens negative, COVID negative --continue azithro (day #3) and Zosyn (day #3) --duonebs scheduled --ID following Hypertension --losartan 25mg daily (forumulary equivalent of home med) s/p SBO --stable, tolerating PO GERD --hold protonix, contraindicated in patients 65+, increases chance of c.diff, on antibiotics FEN Fluids: PO intake adequate Electrolytes: replete as indicated Nutrition: low sodium DVT prophylaxis: subq lovenox Physical therapy Dispo: continues to require inpatient care. Recommend pre-post exercise test in am and if maintains sats, should be able to discharge. See Dr. Waterman's note for home PO meds. Full code. Visit type - Emergency Visit Emergency Visit: Yes ED Registration Date: 11/17/19 Care time: The patient presented to the Emergency Department on the above date and was hospitalized for further evaluation of their emergent condition. - New Patient This patient is new to me today: No - Critical Care Critical Care patient: No - Discharge Referral Referred to [facility] No - Medication Review Med list reviewed for High Risk Meds patients 65 and older: Yes
[2019-11-20] MEDS ORDERED: PIPERACILLIN/TAZOBACTAM 3.375 GM VIAL IVPB ONE ×4 (01:19→23:52)
[2019-11-20] MEDS ORDERED: DEXTROSE 5%-WATER - 50 ML IVPB ONE ×4 (01:19→23:52)
[2019-11-20] MEDS: PIPERACILLIN/TAZOB 3.375 GM 3.375 GM in DEXTROSE 5%-WATER - 50 ML IVPB SCH ×3 (01:27→17:09)
[2019-11-20] MEDS: ALBUTEROL SO4 2.5/IPRATROPIUM 0.5 INH SOL 3 ML VIAL.NEB. NEB SCH ×3 (07:55→20:17)
[2019-11-20 08:13] LABS: BASO % 0.3 % (0-2.0); EOS % 2.4 % (0-4.5); HEMATOCRIT 35.6 % (35.4-49); HEMOGLOBIN 11.6 GM/dl (11.7-16.9); LYMPH % 15.8 % (8-40); MCH 29.6 pg (25.7-33.7); MCHC 32.6 g/dl (32.0-35.9); MEAN CELL VOLUME 90.8 fl (80-96); MEAN PLT VOLUME 8.6 fl (7.5-11.1); MONO % 10.7 % (3.8-10.2); NEUT % 70.8 % (42.8-82.8); PLATELET COUNT 405 K/MM3 (134-434); RBC 3.92 M/mm3 (4.00-5.60); RDW 11.8 % (11.9-15.9); WHITE BLOOD COUNT 10.2 K/mm3 (4.0-10.8)
[2019-11-20 08:25] LABS: BILIRUBIN,TOTAL 0.8 mg/dl (0.2-1); CALCIUM 7.9 mg/dl (8.5-10); POTASSIUM 4.5 mmol/L (3.5-5.1); TOT PROT 5.1 g/dl (6.4-8.2)
[2019-11-20] MEDS: ENOXAPARIN NA (PORCINE) 40 MG/0.4 ML DISP.SYRIN SQ SCH (10:16)
[2019-11-20] MEDS: LOSARTAN POTASSIUM 25 MG TABLET PO SCH (10:16)
[2019-11-20] MEDS: AZITHROMYCIN IVPB 500 MG/250 ML BAG IVPB SCH (10:16)
--- NOTE | 2019-11-20 10:33 | PN ---
Physical Exam: SUBJECTIVE: Patient seen and examined, pt reports decreased sob this morning when talking to family on phone, pt O2 sat 96% on 2 L, pt ambulated in room w/o o2, desat to 89-90% c/o sob Pulm consult for home o2 eval OBJECTIVE: Vital Signs Period Temp Pulse Resp BP Sys/Zarco Pulse Ox Last 24 Hr 97.6 F-99.5 F 68-92 18-20 117-152/39-70 90-97 GENERAL: The patient is awake, alert, and fully oriented, in no acute distress. HEAD: Normal with no signs of trauma. EYES: PERRL, extraocular movements intact, sclera anicteric, conjunctiva clear. No ptosis. ENT: Ears normal, nares patent, oropharynx clear without exudates, moist mucous membranes. NECK: Trachea midline, full range of motion, supple. LUNGS: Breath sounds equal, clear to auscultation bilaterally, no wheezes, no crackles, no accessory muscle use. HEART: Regular rate and rhythm, S1, S2 without murmur, rub or gallop. ABDOMEN: Soft, nontender, nondistended, normoactive bowel sounds, no guarding, no rebound, no hepatosplenomegaly, no masses. EXTREMITIES: 2+ pulses, warm, well-perfused, no edema. NEUROLOGICAL: Cranial nerves II through XII grossly intact. Normal speech, gait not observed. PSYCH: Normal mood, normal affect. SKIN: Warm, dry, normal turgor, no rashes or lesions noted Laboratory Results - last 24 hr 11/20/19 11/20/19 07:20 07:20 WBC 10.2 RBC 3.92 L Hgb 11.6 L Hct 35.6 MCV 90.8 MCH 29.6 MCHC 32.6 RDW 11.8 L Plt Count 405 MPV 8.6 Absolute Neuts (auto) 7.3 Neutrophils % 70.8 Lymphocytes % 15.8 Monocytes % 10.7 H Eosinophils % 2.4 Basophils % 0.3 Sodium 134 L Potassium 4.5 Chloride 105 Carbon Dioxide 22 Anion Gap 7 L BUN 14.0 Creatinine 1.0 Est GFR (CKD-EPI)AfAm 89.23 Est GFR (CKD-EPI)NonAf 76.99 Random Glucose 89 Calcium 7.9 L Total Bilirubin 0.8 AST 14 L ALT 11 L Alkaline Phosphatase 43 L Total Protein 5.1 L Albumin 2.0 L Active Medications Generic Name Dose Route Start Last Admin Trade Name Shawnq PRN Reason Stop Dose Admin Acetaminophen 650 mg 11/17/19 22:38 11/17/19 22:45 Tylenol - PO 650 mg Q6H PRN Administration PAIN LEVEL 4 - 6 Albuterol/Ipratropium 1 amp 11/18/19 12:00 11/20/19 07:55 Duoneb - NEB 1 amp RTID NAHEED Administration Enoxaparin Sodium 40 mg 11/17/19 10:00 11/20/19 10:16 Lovenox - SQ 40 mg DAILY NAHEED Administration Piperacillin Sod/Tazobactam 50 mls @ 100 mls/hr 11/17/19 11:15 11/20/19 10:16 Sod 3.375 gm/ Dextrose IVPB 100 mls/hr Q8H-IV NAHEED Administration Protocol Azithromycin 500 mg in 250 mls @ 250 mls/hr 11/17/19 11:45 11/20/19 10:16 Zithromax 500mg Ivpb (Pre-Docked) IVPB 250 mls/hr DAILY NAHEED Administration Losartan Potassium 25 mg 11/17/19 13:00 11/20/19 10:16 Cozaar - PO 25 mg DAILY NAHEED Administration ASSESSMENT/PLAN: 69 year-old male with a PMH significant for HTN, GERD, and discharged 11/14 from [facility] for a SBO. Admitted for HCAP. #Hypoxic respiratory failure #Bilateral HCAP #Sepsis --CT on 11/12 (during previous admission) showed bilateral lower lobe airspace opacities suspicious for pneumonia and pleural effusions --CT on 11/16 shows extensive bilateral pneumonia with pleural effusions --as of 11/16 met sepsis criteria: WBC 16.2k, p98, demonstrated bilateral pneumonia on CT --hypoxia resolved, pre-post exercise today maintained sat of 92% on room air with flat surface ambulation --blood cultures NGTD, urine PNA antigens negative, COVID negative --continue azithro (day #4) and Zosyn (day #4) --duonebs scheduled --ID following --Pulm consult for home O2 eval #Hypertension --losartan 25mg daily (forumulary equivalent of home med) #s/p SBO --stable, tolerating PO #GERD --hold protonix, contraindicated in patients 65+, increases chance of c.diff, on antibiotics FEN Fluids: PO intake adequate Electrolytes: replete as indicated Nutrition: low sodium DVT prophylaxis: subq lovenox Physical therapy Dispo: continues to require inpatient care. Recommend pre-post exercise test in am and if maintains sats, should be able to discharge.--Pulm consult to [facility] for home o2. Full code. Visit type - Emergency Visit Emergency Visit: Yes ED Registration Date: 11/17/19 Care time: The patient presented to the Emergency Department on the above date and was hospitalized for further evaluation of their emergent condition. - New Patient This patient is new to me today: Yes Date on this admission: 11/20/19 - Critical Care Critical Care patient: No - Discharge Referral Referred to [facility] No - Medication Review Med list reviewed for High Risk Meds patients 65 and older: No
[2019-11-21] MEDS: PIPERACILLIN/TAZOB 3.375 GM 3.375 GM in DEXTROSE 5%-WATER - 50 ML IVPB SCH ×3 (01:30→18:37)
--- NOTE | 2019-11-21 08:15 | PN ---
Progress Note (short form) - Note Progress Note: PULMONARY CONSULTATION DICTATED 11/21/19 IMP ACUTE HYPOXEMIC RESPIRATORY FAILURE EXTENSIVE BILATERAL PNEUMONIA LIKELY ASPIRATION HTN GERD RECENT SBO PLAN SUPPLEMENTAL O2 INHALED BRONCHODILATORS ABX PER ID AMBULATORY O2 SAT ON RA NOCTURNAL O2 SAT MONITORING F/U CHEST X-RAY IN AM F/U CHEST CT 4-6 WKS TO CONFIRM RESOLUTION OF INFILTRATES DR DEAN Problem List - Problems (1) Bilateral pneumonia Code(s): J18.9 - PNEUMONIA, UNSPECIFIED ORGANISM Qualifiers: Pneumonia type: due to unspecified organism Lung location: lower lobe of lung Qualified Code(s): J18.9 - Pneumonia, unspecified organism (2) Fever Code(s): R50.9 - FEVER, UNSPECIFIED (3) HTN (hypertension) Code(s): I10 - ESSENTIAL (PRIMARY) HYPERTENSION (4) Acute hypoxemic respiratory failure Code(s): J96.01 - ACUTE RESPIRATORY FAILURE WITH HYPOXIA
[2019-11-21] MEDS ORDERED: PIPERACILLIN/TAZOBACTAM 3.375 GM VIAL IVPB ONE ×2 (08:44→17:15)
[2019-11-21] MEDS ORDERED: DEXTROSE 5%-WATER - 50 ML IVPB ONE ×2 (08:45→17:15)
[2019-11-21 09:03] LABS: BASO % 0.2 % (0-2.0); EOS % 2.7 % (0-4.5); HEMATOCRIT 35.1 % (35.4-49); HEMOGLOBIN 11.5 GM/dl (11.7-16.9); LYMPH % 17.3 % (8-40); MCH 29.9 pg (25.7-33.7); MCHC 32.8 g/dl (32.0-35.9); MEAN CELL VOLUME 91.2 fl (80-96); MEAN PLT VOLUME 8.7 fl (7.5-11.1); MONO % 8.5 % (3.8-10.2); NEUT % 71.3 % (42.8-82.8); PLATELET COUNT 389 K/MM3 (134-434); RBC 3.85 M/mm3 (4.00-5.60); WHITE BLOOD COUNT 10.9 K/mm3 (4.0-10.8)
[2019-11-21] MEDS: ALBUTEROL SO4 2.5/IPRATROPIUM 0.5 INH SOL 3 ML VIAL.NEB. NEB SCH ×3 (09:05→19:41)
[2019-11-21] MEDS: LOSARTAN POTASSIUM 25 MG TABLET PO SCH (09:19)
[2019-11-21] MEDS: ENOXAPARIN NA (PORCINE) 40 MG/0.4 ML DISP.SYRIN SQ SCH (09:20)
[2019-11-21] MEDS: AZITHROMYCIN IVPB 500 MG/250 ML BAG IVPB SCH (09:20)
[2019-11-21 09:24] LABS: ALBUMIN 2.2 g/dl (3.4-5.0); BILIRUBIN,TOTAL 0.7 mg/dl (0.2-1); CALCIUM 7.8 mg/dl (8.5-10); MAGNESIUM 1.9 mg/dL (1.8-2.4); POTASSIUM 5.1 mmol/L (3.5-5.1); TOT PROT 5.3 g/dl (6.4-8.2)
--- NOTE | 2019-11-21 10:02 | PN ---
Physical Exam: SUBJECTIVE: Patient seen and examined, pt ambulated with nurse this morning around unit, pt c/o sob, desat 90% Pulm to see pt OBJECTIVE: Vital Signs Period Temp Pulse Resp BP Sys/Zarco Pulse Ox Last 24 Hr 98.5 F-98.8 F 68-82 17-19 118-136/50-62 93-98 GENERAL: The patient is awake, alert, and fully oriented, in no acute distress. HEAD: Normal with no signs of trauma. EYES: PERRL, extraocular movements intact, sclera anicteric, conjunctiva clear. No ptosis. ENT: Ears normal, nares patent, oropharynx clear without exudates, moist mucous membranes. NECK: Trachea midline, full range of motion, supple. LUNGS: Breath sounds equal, clear to auscultation bilaterally, no wheezes, no crackles, no accessory muscle use. HEART: Regular rate and rhythm, S1, S2 without murmur, rub or gallop. ABDOMEN: Soft, nontender, nondistended, normoactive bowel sounds, no guarding, no rebound, no hepatosplenomegaly, no masses. EXTREMITIES: 2+ pulses, warm, well-perfused, no edema. NEUROLOGICAL: Cranial nerves II through XII grossly intact. Normal speech, gait not observed. PSYCH: Normal mood, normal affect. SKIN: Warm, dry, normal turgor, no rashes or lesions noted Laboratory Results - last 24 hr 11/21/19 11/21/19 06:00 06:00 WBC 10.9 H RBC 3.85 L Hgb 11.5 L Hct 35.1 L MCV 91.2 MCH 29.9 MCHC 32.8 RDW 12.0 Plt Count 389 MPV 8.7 Absolute Neuts (auto) 7.8 Neutrophils % 71.3 Lymphocytes % 17.3 Monocytes % 8.5 Eosinophils % 2.7 Basophils % 0.2 Sodium 134 L Potassium 5.1 Chloride 104 Carbon Dioxide 21 Anion Gap 9 BUN 13.0 Creatinine 1.0 Est GFR (CKD-EPI)AfAm 89.23 Est GFR (CKD-EPI)NonAf 76.99 Random Glucose 73 L Calcium 7.8 L Magnesium 1.9 Total Bilirubin 0.7 AST 14 L ALT 12 L Alkaline Phosphatase 42 L Total Protein 5.3 L Albumin 2.2 L Active Medications Generic Name Dose Route Start Last Admin Trade Name Freq PRN Reason Stop Dose Admin Acetaminophen 650 mg 11/17/19 22:38 11/17/19 22:45 Tylenol - PO 650 mg Q6H PRN Administration PAIN LEVEL 4 - 6 Albuterol/Ipratropium 1 amp 11/18/19 12:00 11/21/19 09:05 Duoneb - NEB 1 amp RTID NAHEED Administration Enoxaparin Sodium 40 mg 11/17/19 10:00 11/21/19 09:20 Lovenox - SQ 40 mg DAILY NAHEED Administration Piperacillin Sod/Tazobactam 50 mls @ 100 mls/hr 11/17/19 11:15 11/21/19 09:20 Sod 3.375 gm/ Dextrose IVPB 100 mls/hr Q8H-IV NAHEED Administration Protocol Azithromycin 500 mg in 250 mls @ 250 mls/hr 11/17/19 11:45 11/21/19 09:20 Zithromax 500mg Ivpb (Pre-Docked) IVPB 250 mls/hr DAILY NAHEED Administration Losartan Potassium 25 mg 11/17/19 13:00 11/21/19 09:19 Cozaar - PO 25 mg DAILY NAHEED Administration ASSESSMENT/PLAN: 9 year-old male with a PMH significant for HTN, GERD, and discharged 11/14 from [facility] for a SBO. Admitted for HCAP. #Hypoxic respiratory failure #Bilateral HCAP #Sepsis --CT on 11/12 (during previous admission) showed bilateral lower lobe airspace opacities suspicious for pneumonia and pleural effusions --CT on 11/16 shows extensive bilateral pneumonia with pleural effusions --as of 11/16 met sepsis criteria: WBC 16.2k, p98, demonstrated bilateral pneumonia on CT --hypoxia resolved, pt c/o sob during ambulation throughout weekend, desat to 89-90% --blood cultures NGTD, urine PNA antigens negative, COVID negative --continue azithro (day #5) and Zosyn (day #5) --duonebs scheduled --ID following --Pulm consult for home O2 eval #Hypertension --losartan 25mg daily (forumulary equivalent of home med) #s/p SBO --stable, tolerating PO #GERD --hold protonix, contraindicated in patients 65+, increases chance of c.diff, on antibiotics FEN Fluids: PO intake adequate Electrolytes: replete as indicated Nutrition: low sodium DVT prophylaxis: subq lovenox Physical therapy Dispo: continues to require inpatient care. pt desat post exercise to 89-90%.--Pulm consult to eval for home o2. Full code. Visit type - Emergency Visit Emergency Visit: Yes ED Registration Date: 11/17/19 Care time: The patient presented to the Emergency Department on the above date and was hospitalized for further evaluation of their emergent condition. - New Patient This patient is new to me today: No - Critical Care Critical Care patient: No - Discharge Referral Referred to [facility] Med [facility].C.: No - Medication Review Med list reviewed for High Risk Meds patients 65 and older: No
[2019-11-22] MEDS ORDERED: PIPERACILLIN/TAZOBACTAM 3.375 GM VIAL IVPB ONE ×2 (00:08→09:19)
[2019-11-22] MEDS ORDERED: DEXTROSE 5%-WATER - 50 ML IVPB ONE ×2 (00:09→09:20)
[2019-11-22] MEDS: PIPERACILLIN/TAZOB 3.375 GM 3.375 GM in DEXTROSE 5%-WATER - 50 ML IVPB SCH ×2 (01:18→09:35)
--- NOTE | 2019-11-22 07:40 | PN ---
Progress Note, Physician History of Present Illness: pulmonary' alert,comfortable at rest,+ mccurdy,min cough - Current Medication List Current Medications: Active Medications Acetaminophen (Tylenol -) 650 mg PO Q6H PRN PRN Reason: PAIN LEVEL 4 - 6 Last Admin: 11/17/19 22:45 Dose: 650 mg Documented by: Albuterol/Ipratropium (Duoneb -) 1 amp NEB RTID [facility] Last Admin: 11/21/19 19:41 Dose: 1 amp Documented by: Enoxaparin Sodium (Lovenox -) 40 mg SQ DAILY [facility] Last Admin: 11/21/19 09:20 Dose: 40 mg Documented by: Piperacillin Sod/Tazobactam (Sod 3.375 gm/ Dextrose) 50 mls @ 100 mls/hr IVPB Q8H-IV [facility]; Protocol Last Admin: 11/22/19 01:18 Dose: 100 mls/hr Documented by: Azithromycin (Zithromax 500mg Ivpb (Pre-Docked)) 500 mg in 250 mls @ 250 mls/hr IVPB DAILY [facility] Last Admin: 11/21/19 09:20 Dose: 250 mls/hr Documented by: Losartan Potassium (Cozaar -) 25 mg PO DAILY [facility] Last Admin: 11/21/19 09:19 Dose: 25 mg Documented by: - Objective Vital Signs: Vital Signs Temperature 98.4 F 11/22/19 06:00 Pulse Rate 66 11/22/19 06:00 Respiratory Rate 16 11/22/19 06:00 Blood Pressure 118/58 L 11/22/19 06:00 O2 Sat by Pulse Oximetry (%) 97 11/22/19 06:00 Constitutional: Yes: Well Nourished, Calm Eyes: Yes: WNL HENT: Yes: WNL Neck: Yes: WNL Cardiovascular: Yes: Regular Rate and Rhythm, S1, S2 Respiratory: Yes: Rales (bibasilar crackles) Gastrointestinal: Yes: Normal Bowel Sounds, Soft Extremities: Yes: WNL Edema: No Labs: CBC, BMP 11/21/19 06:00 11/21/19 06:00 - ....Imaging Chest X-ray: Report Reviewed, Image Reviewed (no change rl infitrates) Problem List - Problems (1) Bilateral pneumonia Code(s): J18.9 - PNEUMONIA, UNSPECIFIED ORGANISM Qualifiers: Pneumonia type: due to unspecified organism Lung location: lower lobe of lung Qualified Code(s): J18.9 - Pneumonia, unspecified organism (2) Fever Code(s): R50.9 - FEVER, UNSPECIFIED (3) HTN (hypertension) Code(s): I10 - ESSENTIAL (PRIMARY) HYPERTENSION (4) Acute hypoxemic respiratory failure Code(s): J96.01 - ACUTE RESPIRATORY FAILURE WITH HYPOXIA Assessment/Plan IMP ACUTE HYPOXEMIC RESPIRATORY FAILURE IMPROVED EXTENSIVE BILATERAL PNEUMONIA LIKELY ASPIRATION CLINICALLY IMPROVING HTN GERD RECENT SBO HYPONATREMIA PLAN SUPPLEMENTAL O2 INHALED BRONCHODILATORS ABX PER ID AMBULATORY O2 SAT ON RA NOCTURNAL O2 SAT MONITORING F/U CHEST CT 4-6 WKS TO CONFIRM RESOLUTION OF INFILTRATES MONITOR AFTAB [place] DR Problem List - Problems (1) Bilateral pneumonia Code(s): J18.9 - PNEUMONIA, UNSPECIFIED ORGANISM Qualifiers: Pneumonia type: due to unspecified organism Lung location: lower lobe of lung Qualified Code(s): J18.9 - Pneumonia, unspecified organism (2) Fever Code(s): R50.9 - FEVER, UNSPECIFIED (3) HTN (hypertension) Code(s): I10 - ESSENTIAL (PRIMARY) HYPERTENSION (4) Acute hypoxemic respiratory failure Code(s): J96.01 - ACUTE RESPIRATORY FAILURE WITH HYPOXIA
[2019-11-22 08:42] LABS: ALBUMIN 2.3 g/dl (3.4-5.0); BILIRUBIN,TOTAL 0.7 mg/dl (0.2-1); CALCIUM 8.2 mg/dl (8.5-10); CREATININE 0.9 mg/dl (0.55-1.3); MAGNESIUM 1.9 mg/dL (1.8-2.4); POTASSIUM 4.5 mmol/L (3.5-5.1); TOT PROT 5.4 g/dl (6.4-8.2)
[2019-11-22 08:43] LABS: BASO % 0.4 % (0-2.0); EOS % 3.2 % (0-4.5); HEMATOCRIT 36.5 % (35.4-49); HEMOGLOBIN 11.9 GM/dl (11.7-16.9); LYMPH % 15.4 % (8-40); MCHC 32.6 g/dl (32.0-35.9); MEAN PLT VOLUME 8.4 fl (7.5-11.1); MONO % 8.6 % (3.8-10.2); NEUT % 72.4 % (42.8-82.8); PLATELET COUNT 436 K/MM3 (134-434); RBC 3.97 M/mm3 (4.00-5.60); RDW 11.8 % (11.9-15.9); WHITE BLOOD COUNT 10.9 K/mm3 (4.0-10.8)
[2019-11-22] MEDS: ALBUTEROL SO4 2.5/IPRATROPIUM 0.5 INH SOL 3 ML VIAL.NEB. NEB SCH (08:51)
--- NOTE | 2019-11-22 09:29 | PN ---
Physical Exam: SUBJECTIVE: Patient seen and examined at bedside. Breathing has improved over past 48 hours. Two days ago he was unable to complete a full sentence when talking on the phone, now much better. OBJECTIVE: Vital Signs Period Temp Pulse Resp BP Sys/Zarco Pulse Ox Last 24 Hr 98.0 F-98.7 F 66-96 16-20 115-134/44-66 93-98 GENERAL: The patient is awake, alert, and fully oriented, in no acute distress. LUNGS: Bibasilar crackles HEART: Regular rate and rhythm, S1, S2 ABDOMEN: Soft, nontender, nondistended EXTREMITIES: 2+ pulses, warm, well-perfused, no edema. NEUROLOGICAL: Cranial nerves II through XII grossly intact. Normal speech, steady gait Laboratory Results - last 24 hr 11/22/19 11/22/19 07:00 07:00 WBC 10.9 H RBC 3.97 L Hgb 11.9 Hct 36.5 MCV 92.0 MCH 30.0 MCHC 32.6 RDW 11.8 L Plt Count 436 H MPV 8.4 Absolute Neuts (auto) 8.0 Neutrophils % 72.4 Lymphocytes % 15.4 Monocytes % 8.6 Eosinophils % 3.2 Basophils % 0.4 Sodium 133 L Potassium 4.5 Chloride 105 Carbon Dioxide 21 Anion Gap 7 L BUN 11.0 Creatinine 0.9 Est GFR (CKD-EPI)AfAm 101.36 Est GFR (CKD-EPI)NonAf 87.45 Random Glucose 87 Calcium 8.2 L Magnesium 1.9 Total Bilirubin 0.7 AST 16 ALT 13 Alkaline Phosphatase 42 L Total Protein 5.4 L Albumin 2.3 L Active Medications Generic Name Dose Route Start Last Admin Trade Name Shawnq PRN Reason Stop Dose Admin Acetaminophen 650 mg 11/17/19 22:38 11/17/19 22:45 Tylenol - PO 650 mg Q6H PRN Administration PAIN LEVEL 4 - 6 Albuterol/Ipratropium 1 amp 11/18/19 12:00 11/22/19 08:51 Duoneb - NEB 1 amp RTID NAHEED Administration Enoxaparin Sodium 40 mg 11/17/19 10:00 11/21/19 09:20 Lovenox - SQ 40 mg DAILY NAHEED Administration Piperacillin Sod/Tazobactam 50 mls @ 100 mls/hr 11/17/19 11:15 11/22/19 01:18 Sod 3.375 gm/ Dextrose IVPB 100 mls/hr Q8H-IV NAHEED Administration Protocol Azithromycin 500 mg in 250 mls @ 250 mls/hr 11/17/19 11:45 11/21/19 09:20 Zithromax 500mg Ivpb (Pre-Docked) IVPB 250 mls/hr DAILY NAHEED Administration Losartan Potassium 25 mg 11/17/19 13:00 11/21/19 09:19 Cozaar - PO 25 mg DAILY NAHEED Administration ASSESSMENT/PLAN: 69 year-old male with a PMH significant for HTN, GERD, and discharged 11/14 from [facility] for a SBO. Admitted for pneumonia. Hypoxic respiratory failure Bilateral HCAP Sepsis --CXR today shows persistent bilateral infiltrates --repeat pre-post assessment today --reswab for COVID --azithro course complete; continue Zosyn (day #6) --stop duonebs pending COVID results Hypertension --losartan 25mg daily s/p SBO --stable, tolerating PO GERD --hold protonix, contraindicated in patients 65+, increases chance of c.diff, on antibiotics FEN Fluids: PO intake adequate Electrolytes: replete as indicated Nutrition: low sodium DVT prophylaxis: subq lovenox Physical therapy Dispo: continues to require inpatient care. Full code. Visit type - Emergency Visit Emergency Visit: Yes ED Registration Date: 11/17/19 Care time: The patient presented to the Emergency Department on the above date and was hospitalized for further evaluation of their emergent condition. - New Patient This patient is new to me today: No - Critical Care Critical Care patient: No - Medication Review Med list reviewed for High Risk Meds patients 65 and older: Yes
[2019-11-22] MEDS: AZITHROMYCIN IVPB 500 MG/250 ML BAG IVPB SCH (09:35)
[2019-11-22] MEDS: ENOXAPARIN NA (PORCINE) 40 MG/0.4 ML DISP.SYRIN SQ SCH (09:36)
[2019-11-22] MEDS: LOSARTAN POTASSIUM 25 MG TABLET PO SCH (09:37)
[2019-11-22 13:46] VITALS: BP 114/48; TEMP 97.9
[2019-11-22 14:26] VITALS: PULSE 76
--- NOTE | 2019-11-22 14:49 | DS ---
Physical Exam: SUBJECTIVE: Patient seen and examined at bedside. Breathing has improved over past 48 hours. Two days ago unable to complete a full sentence when talking on the phone, now much better. OBJECTIVE: Vital Signs Period Temp Pulse Resp BP Sys/Zarco Pulse Ox Last 24 Hr 97.9 F-98.7 F 66-88 16-19 114-120/44-68 92-97 PHYSICAL EXAM GENERAL: The patient is awake, alert, and fully oriented, in no acute distress. LUNGS: Bibasilar crackles HEART: Regular rate and rhythm, S1, S2 ABDOMEN: Soft, nontender, nondistended EXTREMITIES: 2+ pulses, warm, well-perfused, no edema. NEUROLOGICAL: Cranial nerves II through XII grossly intact. Normal speech, steady gait LABS Laboratory Results - last 24 hr 11/22/19 11/22/19 07:00 07:00 WBC 10.9 H RBC 3.97 L Hgb 11.9 Hct 36.5 MCV 92.0 MCH 30.0 MCHC 32.6 RDW 11.8 L Plt Count 436 H MPV 8.4 Absolute Neuts (auto) 8.0 Neutrophils % 72.4 Lymphocytes % 15.4 Monocytes % 8.6 Eosinophils % 3.2 Basophils % 0.4 Sodium 133 L Potassium 4.5 Chloride 105 Carbon Dioxide 21 Anion Gap 7 L BUN 11.0 Creatinine 0.9 Est GFR (CKD-EPI)AfAm 101.36 Est GFR (CKD-EPI)NonAf 87.45 Random Glucose 87 Calcium 8.2 L Magnesium 1.9 Total Bilirubin 0.7 AST 16 ALT 13 Alkaline Phosphatase 42 L Total Protein 5.4 L Albumin 2.3 L HOSPITAL COURSE: Date of Admission:11/17/19 Date of Discharge: 11/22/19 Pre hospital course 69 year-old male with a PMH significant for HTN, GERD, and discharged 11/14 from [facility] for a SBO which was medically managed and did not require surgical intervention. Patient returned to the ED on 11/15 after his son took his temperature and it was 101.3. Patient complains of a slight cough but otherwise feels well. He denies sweats, chills. Denies SOB, PARRISH, nausea, vomiting, diarrhea. He is tolerating PO intake. ER course was notable for: (1) WBC 20.2k Subsequent hospital course 69 year-old male with a PMH significant for HTN, GERD, and discharged 11/14 from [facility] for a SBO. Admitted for pneumonia. Hypoxic respiratory failure Bilateral HCAP Sepsis --CT on 11/12 (during previous admission) showed bilateral lower lobe airspace opacities suspicious for pneumonia and pleural effusions --11/15 CXR showed bibasilar infiltrates and improved pleural effusions --as of 11/16 met sepsis criteria: WBC 16.2k, p98, demonstrated bilateral pneumonia on CT --blood cultures negative, urine PNA antigens negative, COVID negative --completed course of azithro, discharged on augmentin for an additional 7 days of treatment Hypertension --BP was stable, continued losartan 25mg daily s/p SBO --stable, tolerated PO GERD --held protonix, contraindicated in patients 65+, increases chance of c.diff, on antibiotics Minutes to complete discharge: 35 Discharge Summary Problems reviewed: Yes Reason For Visit: BILATERAL PNEUMONIA Current Active Problems Acute hypoxemic respiratory failure (Acute) Bilateral pneumonia (Acute) Condition: Improved - Instructions Diet, Activity, Other Instructions: A prescription has been sent to your pharmacy for augmentin which is an antibiotic. Take this medication as directed and be sure to finish all the medication. You should follow up with your primary care provider Dr. Leyva, within one week of your discharge. You will also need a followup chest xray in 6 weeks. You were swabbed for COVID on 11/15 and it was negative. You were re-swabbed today, results pending. We will let you know the results. If you want to contact us, please call the nurses' station at [phone]. You can reach AWILDA Rinaldi at [phone]. Referrals: Dimitri Leyva [Non Staff, Medical] - 1 Week Disposition: HOME - Home Medications Comprehensive Discharge Medication List: Ambulatory Orders Hydrochlorothiazide 12.5 mg PO DAILY 11/12/19 Telmisartan 20 mg PO DAILY 11/12/19 Omeprazole 10 mg PO DAILY 11/15/19 Amox-Tr/K Cl [Augmentin 875-125mg Tablet -] 1 tab PO BID 5 Days #14 tablet 11/22/19 This patient is new to me today: No Emergency Visit: Yes ED Registration Date: 11/17/19 Care time: The patient presented to the Emergency Department on the above date and was hospitalized for further evaluation of their emergent condition. Critical Care patient: No - Discharge Referral Referred to [facility] Med [facility]C.: No
--- NOTE | 2019-11-23 13:06 | CONS ---
DATE OF CONSULTATION: 11/21/2019 REFERRING PHYSICIAN: MELO Painting HISTORY OF PRESENT ILLNESS: The patient is a 69-year-old male with past medical history of GERD, hypertension, recently hospitalized at [facility], discharged on November 14 secondary to small-bowel obstruction, medically managed, readmitted to [facility] on November 14 with fever, cough productive of sputum. Patient denied any complaints of chest pain, nausea, vomiting, diaphoresis. On admission, he was noted to have a white count of 20.2. He underwent a chest CT which revealed bilateral pneumonia. He was admitted. He was evaluated by ID and placed on broad-spectrum antibiotics. Of note is the patient was noted at times initially to be hypoxic, requiring supplemental oxygen therapy. The patient is a nonsmoker. He denies any history of occupational exposure to chemicals or fumes. There is no recent travel. PAST MEDICAL HISTORY: Again includes recent small-bowel obstruction, GERD, hypertension. REVIEW OF SYSTEMS: Positive cough, positive dyspnea on exertion. No chest pain. No hemoptysis. Positive fever, no chills. No weight loss, night sweats. CURRENT MEDICATIONS: Medications include piperacillin, Cozaar. PHYSICAL EXAMINATION: General: The patient is a well-developed, well-nourished male, awake, alert, in no acute distress. Vital Signs: Afebrile. Blood pressure 116/68, respiratory rate is 18, O2 saturation 95% on 2 L nasal cannula. HEENT: Normocephalic, atraumatic. Neck: Supple. Heart: Regular, S1, S2. Chest: Bibasilar crackles. Abdomen: Soft. Bowel sounds are positive. Extremities: No cyanosis or edema. LABORATORY: WBC is 10.9, hemoglobin 11.5, hematocrit 35.1, with a platelet count of 389,000. Sodium 134. UA positive bilirubin, positive protein. COVID negative. Chest CT: Extensive bilateral lower lobe consolidations consistent with pneumonia. IMPRESSION: 1. Acute hypoxic, hypoxemic respiratory failure secondary to extensive bilateral pneumonia, likely aspiration, clinically improving. 2. Hypertension. 3. Gastroesophageal reflux disease. 4. Recent small-bowel obstruction. 5. Hyponatremia. PLAN: Supplemental O2, inhaled bronchodilators. Continue antibiotic therapy as per Infectious Disease. Ambulatory O2 saturation on room air. Nocturnal O2 saturation monitoring. Followup chest CT in 4 to 6 weeks to confirm resolution of infiltrates and monitor electrolytes, serum sodium level. ISAIAS DEAN M.D. [id number]
== END 2019-11-22 16:00 | disposition home or self-care (01) | DRG 871 ==
LOC: FER 23:08 → FM/S 11-17 00:09 → UNDOADMIN 11-17 00:43 → FM/S 11-17 00:43
PROVIDERS: ADMIT Internal Medicine; ATTEND Nurse Practitioner Acute Care
DX: A41.9 Sepsis, unspecified organism (principal); J18.9 Pneumonia, unspecified organism; J96.01 Acute respiratory failure with hypoxia; J90 Pleural effusion, not elsewhere classified; E87.1 Hypo-osmolality and hyponatremia; I10 Essential (primary) hypertension; K21.9 Gastro-esophageal reflux disease without esophagitis; Y95 Nosocomial condition
CPT/HCPCS: 36415; 71045-TC-FY; 71046-TC-FY; 71250-TC; 80053; 81003; 81015; 83605; 83735; 85025; 87040; 87899; 93005; 94640; 97116-GP; 97161-GP; 99285-25; U0003